=== PATIENT | female | born 1980 | race Caucasian/White ===

== ENCOUNTER 2021-06-24 20:17 | Emergency (ER) | payer OTHER, SELFPAY ==
[2021-06-24 20:20] VITALS: BP 122/59; PULSE 68; RESP 18; TEMP 36.6; O2SAT 100
--- NOTE | 2021-06-24 20:47 | ED.NAVMDI ---
HPI - Nausea/Vomiting/Diarrhea General Chief complaint: Abdominal Pain Stated complaint: Abd pain and vomiting for 3 days Time Seen by Provider: 06/24/21 20:31 Source: patient Mode of arrival: ambulatory Limitations: no limitations History of Present Illness HPI Narrative: Patient is a 41-year-old female complaining of nausea vomiting accompanied by epigastric discomfort, described as burning, mild, nonradiating x3 days. Patient describes her vomitus is nonbilious nonbloody. Patient denies any chest pain, shortness of breath, diarrhea, urinary symptoms, fever or chills. Related Data Allergies Allergy/AdvReac Type Severity Reaction Status Date / Time penicillin G Allergy Hives Verified 06/24/21 20:58 Review of Systems Review of Systems: All systems reviewed & are unremarkable except as noted in HPI and below Constitutional: Constitutional: Denies body ache(s), Denies chills, Denies excessive sweating, Denies fatigue, Denies fever(s), Denies headache(s), Denies lethargy, Denies malaise, Denies weakness and Denies weight loss Eyes: Eyes: Denies blurry vision, Denies change in vision and Denies loss of vision ENT: Denies dizziness, Denies ear discharge, Denies headache(s), Denies lip swelling, Denies epistaxis, Denies nasal congestion, Denies neck pain, Denies throat swelling and Denies tongue swelling Cardiovascular: Cardiovascular: Denies chest pain, Denies chest pain at rest, Denies chest pain with activity, Denies diaphoresis, Denies rapid heart rate, Denies edema, Denies irregular heart rhythm, Denies lightheadedness, Denies palpitations, Denies dyspnea and Denies dyspnea on exertion Respiratory: Respiratory: Denies chest congestion, Denies cough, Denies hemoptysis, Denies dyspnea and Denies dyspnea on exertion Gastrointestinal: Gastrointestinal: Denies abdominal pain, Denies melena, Denies hematochezia, Denies diarrhea and Denies hematemesis Musculoskeletal: Musculoskeletal: Denies abnormal gait, Denies deformity, Denies joint swelling, Denies limited range of motion, Denies neck pain and Denies numbness Neurologic: Denies Abnormal speech present, Denies abnormal gait, Denies confusion, Denies dizziness, Denies headache(s), Denies focal weakness, Denies loss of vision, Denies numbness, Denies Other visual disturbances, Denies Sensory deficit (Neuro) and Denies weakness Psychiatric: Psychiatric: Denies confusion, Denies depression, Denies auditory hallucinations, Denies homicidal ideation and Denies suicidal ideation Endocrine: Endocrine: Denies cold intolerance, Denies excessive sweating, Denies fatigue, Denies heat intolerance and Denies palpitations Hematologic/Lymphatic: Hematologic/Lymphatic: Denies easy bleeding and Denies easy bruising Allergic/Immunologic: Allergic/Immunologic: Denies lip swelling, Denies throat swelling and Denies tongue swelling PMFSH Comments Past medical history: Pacemaker Family history: None Social history: Vapes, occasional EtOH use, occasional marijuana use Exam Const: General: cooperative, healthy appearing, comfortable, no acute distress, well developed, alert and awake; No confusion Orientation/consciousness: oriented to person, oriented to place, oriented to time, patient oriented x3 and No confusion Limitations: no limitations HENMT: Head: normal to inspection, normocephalic and atraumatic Ears: hearing grossly normal bilaterally, TM normal on the right and TM normal on the left General nose exam: Normal external nose present, Normal nares present and No nasal discharge present Face and sinus: normal facial exam Mouth: Yes Normal oral and palatal mucosa present, Yes lip normal, Yes tongue normal and Yes oropharynx normal Throat: posterior oropharynx normal, tonsils normal and uvula midline Eyes: General: appearance normal, both eyes and all related structures Pupils: Equal, round and reactive pupils present EOM: EOMs intact bilaterally Neck: Neck: normal visual inspection, full ROM, no
[2021-06-24] MEDS: SODIUM CHLORIDE 0.9% IV 1,000 ML 999 ML IV CONT ×2 (20:55→22:29)
[2021-06-24] MEDS: PROMETHAZINE HCL 25 MG/ML AMPUL 12.5 MG IV PUSH (20:56)
[2021-06-24] MEDS: PANTOPRAZOLE SODIUM IV 40 MG VIAL IV PUSH (20:56)
[2021-06-24 21:11] LABS: Basophils Percent Auto 0.3 % (0.2-1.2); Eosinophils Percent Auto 0.1 % (0-4.4); Hematocrit 40.5 % (37.0-47.0); Hemoglobin 13.9 g/dL (12.0-15.0); Immature Granulocyte Absolute 0.02 K/mm3 (0.00-0.031); Immature Granulocyte Percent A 0.2 % (0-0.5); Lymphocytes Absolute Auto 1.32 K/mm3 (0.9-3.2); Mean Corpuscular HGB Conc 34.3 g/dl (32-36); Mean Corpuscular Hemoglobin 33.3 pg (26-34); Mean Corpuscular Volume 96.9 fl (80-100); Mean Platelet Volume 11.6 fl (7.4-10.4); Monocytes Absolute Auto 0.8 K/mm3 (0.1-0.6); Neutrophils Absolute Auto 7.3 K/mm3 (1.3-6.7); Neutrophils Percent Auto 77.4 % (45.5-73.1); Platelet Count Result 190 k/mm3 (150-375); Red Blood Count 4.18 M/mm3 (4.2-5.4); Red Cell Distribution Width 11.6 % (11.5-14.5); White Blood Count 9.4 K/mm3 (4.5-10.0)
[2021-06-24] MEDS: ONDANSETRON INJ 4 MG/2 ML VIAL IV PUSH (21:26)
[2021-06-24 21:29] LABS: Alanine Aminotransferase 17 U/L (4-35); Albumin Level 4.6 g/dL (3.5-5.1); Alkaline Phosphatase 56 U/L (38-126); Anion Gap 10 mmol/L (8-16); Aspartate Amino Transferase 22 U/L (14-36); Bilirubin,Total 0.6 mg/dL (0.2-1.3); Blood Urea Nitrogen 11 mg/dL (7-17); Calcium 9.3 mg/dL (8.4-10.2); Carbon Dioxide 28 mmol/L (22-30); Chloride 98 mmol/L (98-107); Estimated CRCL calculation 89 ml/min; Estimated Glomerular Filt Rate > 60; Glucose 116 mg/dL (65-110); Lipase 244 U/L (23-300); Potassium 3.1 mmol/L (3.4-5.0); Sodium 136 mmol/L (137-145)
[2021-06-24] MEDS: POTASSIUM CHLORIDE 20 MEQ PACKET (FOR LIQUID) PO (22:29)
[2021-06-24 22:33] VITALS: BP 118/72; PULSE 72; RESP 18; O2SAT 99
[2021-06-24 23:49] VITALS: BP 111/57; PULSE 100; RESP 17; O2SAT 98
== END 2021-06-24 23:38 | disposition home or self-care (01) ==
PROVIDERS: Emergency Provider Emergency Medicine; PCP Family Medicine
DX: K29.00 Acute gastritis without bleeding (principal); Z95.0 Presence of cardiac pacemaker
CPT/HCPCS: 36415; 80053; 83690; 85025; 96361; 96374; 96375; 99284; A9270; C9113; J2405; J2550; J7030

== ENCOUNTER 2021-12-02 08:57 | Emergency (ER) | payer OTHER, SELFPAY ==
--- NOTE | ~2021-12-02 | XR_ITS ---
EXAMINATION: XR foot LT min 3V DATE: 12/02/2021 09:30 INDICATION: Left foot pain and swelling. Injury. TECHNIQUE: 4 views of left foot were obtained. COMPARISON: None. FINDINGS: Bone alignment is normal. No fracture. There is mild osteoarthritis of first metatarsophala ngeal joint and some of the interphalangeal joints. There is an enthesophyte at plantar aspect of percy caneal tuberosity. IMPRESSION: 1. Mild polyarticular osteoarthritis. Reviewed, dictated and finalized at location D.
[2021-12-02 09:07] VITALS: BP 107/54; PULSE 61; RESP 18; TEMP 37.1; O2SAT 97
--- NOTE | 2021-12-02 09:21 | ED.GENADULT ---
HPI - General Adult General Chief complaint: Extremity Injury, Lower Stated complaint: left foot injury Time Seen by Provider: 12/02/21 09:01 Source: RN notes reviewed History of Present Illness HPI narrative: Patient presents emergency room from home for left foot pain. Patient states she was playing with her 3-year-old last night when her left fifth toe struck the wall and was bent backwards states has had pain since that time in the toe as well as in the foot in this region with bruising of the fifth toe she states she is been able to place weight on the foot. States she not taking thing for pain she denies any other trauma or injury Related Data Allergies Allergy/AdvReac Type Severity Reaction Status Date / Time latex Allergy Unknown Unverified 08/24/21 15:52 Penicillins Allergy Unknown Unverified 08/24/21 15:52 penicillin G Allergy Hives Verified 08/24/21 15:52 Review of Systems Review of Systems: Gen.: Denies fevers or chills Musculoskeletal: See HPI Neuro: Denies numbness, tingling, weakness Skin: Denies rash Endo: Denies DM PMFSH Past Medical History Medical History (Updated 12/02/21 @ 09:56 by Jed Mcintosh DO) Patient denies significant medical history Social History Social History (Updated 12/02/21 @ 09:22 by Jed Mcintosh DO) Smoking status: Never smoker Exam Narrative: APPEARANCE: No acute distress, nontoxic, resting in bed Eyes: EOMI HEENT: Normocephalic, atraumatic, RESPIRATORY: No respiratory distress MUSCULOSKELETAl: Tender to palpation over the left fifth toe with swelling and ecchymosis there is tenderness at the fifth MTP joint remainder the foot is nontender dorsalis pedis pulse 2+ neurovascular intact no tenderness of the left ankle NEURO: Awake and alert. Following commands, speech normal, no focal deficits SKIN:: Warm, dry. Normal Color no rash or lesions Course Course Emergency Course: Discussed with patient results of workup and diagnosis. Discussed need for follow-up with primary care, proper use of medication, and reasons to return to the emergency department. Patient understands and agrees to current treatment plan Vital Signs Vital signs: Vital Signs Temperature 98.8 F 12/02/21 09:07 Pulse Rate 61 12/02/21 09:07 Respiratory Rate 18 12/02/21 09:07 Blood Pressure 107/54 L 12/02/21 09:07 Pulse Oximetry 97 12/02/21 09:07 Oxygen Delivery Room Air 12/02/21 09:07 Temperature 98.8 F 12/02/21 09:07 Pulse Rate 61 12/02/21 09:07 Respiratory Rate 18 12/02/21 09:07 Blood Pressure 107/54 L 12/02/21 09:07 Pulse Oximetry 97 12/02/21 09:07 Oxygen Delivery Room Air 12/02/21 09:07 Medical Decision Making Vital Signs Vital Signs: Vital Signs Temperature 98.8 F 12/02/21 09:07 Pulse Rate 61 12/02/21 09:07 Respiratory Rate 18 12/02/21 09:07 Blood Pressure 107/54 L 12/02/21 09:07 Pulse Oximetry 97 12/02/21 09:07 Oxygen Delivery Room Air 12/02/21 09:07 Temperature 98.8 F 12/02/21 09:07 Pulse Rate 61 12/02/21 09:07 Respiratory Rate 18 12/02/21 09:07 Blood Pressure 107/54 L 12/02/21 09:07 Pulse Oximetry 97 12/02/21 09:07 Oxygen Delivery Room Air 12/02/21 09:07 Imaging Data Radiologist's impression: ITS Impressions Foot X-Ray 12/02/21 09:33 IMPRESSION: 1. Mild polyarticular osteoarthritis. Discharge Plan Discharge Clinical Impression: Contusion of fifth toe of left foot Patient Disposition: Home, Self-Care Condition: Stable Instructions: Antibiotic Form, Foot Contusion (ED) Follow-up/Referrals: Marcos,MD Archana [Non-Staff] - 2 Days Time of Disposition: 09:56
[2021-12-02] MEDS: IBUPROFEN 600 MG TABLET PO (10:20)
== END 2021-12-02 10:32 | disposition home or self-care (01) ==
PROVIDERS: Emergency Provider Emergency Medicine
DX: S90.122A Contusion of left lesser toe(s) without damage to nail, initial encounter (principal); M19.072 Primary osteoarthritis, left ankle and foot; W22.01XA Walked into wall, initial encounter
CPT/HCPCS: 73630; 99283; A9270

== ENCOUNTER 2025-03-06 11:24 | Emergency (ER) | payer OTHER, SELFPAY ==
--- NOTE | ~2025-03-06 | CT_ITS ---
EXAMINATION: CT abdomen pelvis w con DATE: 03/06/2025 14:44 INDICATION: Upper abdominal pain TECHNIQUE: Computed tomography (CT) of the abdomen and pelvis was performed with 100 mL Omnipaque-350 intravenous contrast. Automated exposure control and iterative reconstruction technique were employed. The dose-length product was 236.38 mGy-cm. COMPARISON: None FINDINGS: Lung bases are clear. Heart size is normal. No pericardial or pleural effusion. Dual-lead cardiac pacemaker with lead tip near the apex of the right ankle and thickening of the right atrial appendage on the stacker driver topogram. 1.9 cm ill- defined hypodense/hypoenhancing lesion in the ligamentum teres. Gallbladder, spleen, pancreas, bilateral adrenal glands and kidneys are normal. Prominent edematous wall thickening at the gastric antrum suggestive of gastritis or peptic ulcer disease. Bladder, anteverted uterus and bilateral adrenal glands are normal. No bowel obstruction. The appendix is not visualized. No pericecal inflammatory change to suggest acute appendicitis. Very small fat-containing left inguinal hernia. No free intraperitoneal gas or fluid. No pathologically enlarged abdominal or pelvic lymphadenopathy. Mild bilateral sacroiliac osteoarthritis. IMPRESSION: 1. Edematous wall thickening at the gastric antrum suggestive of either peptic ulcer disease or focal gastritis which could be infectious or inflammatory in etiology. 2. Very small fat-containing left inguinal hernia. Reviewed, dictated and finalized at location A. IMPRESSION: 1. Edematous wall thickening at the gastric antrum suggestive of either peptic ulcer disease or focal gastritis which could be infectious or inflammatory in e tiology. 2. Very small fat-containing left inguinal hernia.
--- OUTSIDE RECORDS SUMMARY | 2025-03-06 11:27 | XMS_ITS | Encounter Summary ---
Author Organization [facility] Facility Care Team Providers Care Enterprise Systems Administrator Name Role Phone Archana Rodríguez MD Primary Care Provider [phone] Encounter Details Date Type Department Care Team (Latest Contact Info) Description 07/05/2017 Orders Only [facility] CLINCONV ProviderLacey MD [address] [place] [address] Social History Tobacco Use Types Packs/Day Years Used Date Smoking Tobacco: Never Assessed Comments Unknown Sex and Gender Information Value Date Recorded Sex Assigned at Not on file Legal Sex Female 5:07 PM VIRTUALIZATION CONSULTANT Gender Identity Female 07/30/2019 2:46 PM VIRTUALIZATION CONSULTANT Sexual Orientation Straight 07/30/2019 2: 46 PM VIRTUALIZATION CONSULTANT documented as of this encounter Plan of Treatment Not on file documented as of this encounter Procedures Procedure Name Priority Date/Time Associated Diagnosis Comments CARDIOLOGY REPORT 07/05/2017 12: 00 AM VIRTUALIZATION CONSULTANT documented in this encounter Results * CARDIOLOGY REPORT (07/05/2017 12:00 AM VIRTUALIZATION CONSULTANT) Anatomical Region Laterality Modality Other Narrative 07/05/2017 12:00 AM VIRTUALIZATION CONSULTANT Ordered by an unspecified provider. us Historical Provider [facility] AN LINDO Final Result documented in this encounter Visit Diagnoses Not on filedocumented in this encounter Additional Health Concerns Infection Onset Date Last Indicated Resolved Time COVID: Suspected 06/23/2021 06/23/2021 07/07/2021 3:05 AM VIRTUALIZATION CONSULTANT COVID: Suspected 03/11/2024 03/11/2024 03/11/2024 5:50 PM CDT documented as of this encounter Care Teams Enterprise Systems Administrator Relationship Specialty Start Date End Date Archana Rodríguez MD PCP - General Family Medicine 09/13/18 documented as of this encounter
--- OUTSIDE RECORDS SUMMARY | 2025-03-06 11:27 | XMS_ITS | Encounter Summary ---
Author Organization [facility] Address [address] [place] [address] Care Team Providers Care Breaker Engineer Name Role Phone Ruby Negron MD Unavailable Archana Singh MD Primary Care Provider [phone]- [phone] Encounter Details Date Type Department Care Team (Late st Contact Info) Description 09/19/2023 Theralogix Message Enc [facility], [facility] [address] [place], [place] [id number] [facility], [facility] Provider Carelink Battery Check Social History Tobacco Use Types Packs/Day Years Used Date Smoking Tobacco: Former Cigarettes Smokeless Tobacco: Current Alcohol Use Standard Drinks/Week Comments Yes 0 (1 standard drink = 0.6 oz pur e alcohol) Comments Unknown Sex and Gender Information Value Date Recorded Sex Assigned at Female 08/29/2023 11:37 AM CDT Legal Sex Female 6:21 PM CDT Gender Identity Female 08/29/2023 11:37 AM CDT Sexual Orientation Straight 08/29/2023 11 :37 AM CDT documented as of this encounter Plan of Treatment Upcoming Encounters Date Type Department Care Team (Late st Contact Info) Description 04/12/2025 2:00 PM CDT Allied Health/Nurse Visit [facility], [facility] [address] [place], [place] [phone] Dickson Rubio MD [facility]. [facility] [address] [place], [place] [id number] 04/13/2025 2:20 PM CDT Allied Health/Nurse Visit [facility], [facility] [address] [place] [address] Ruby Negron MD Three [facility]. [facility] [address] [place] [address] 12/21/2025 10:00 AM CDT Office Visit [facility], [facility] [address] [place], [place] [address] Ruth Clark, CLARICE 3 [facility], [facility] [address] [place] [address] documented as of this encounter Visit Diagnoses Not on filedocumented in this encounter Care Teams Breaker Engineer Relationship Specialty Start Date End Date Archana Singh MD Three [facility]. [facility] [address] [place] [address] PCP - General FAMILY PRACTICE 03/14/21 Ruby Negron MD Three [facility]. [facility] [address] [place] [address] EP Freezer Person CLINICAL CARDIAC ELECTROPHYSIOLOGY 12/10/18 documented as of this encounter
--- OUTSIDE RECORDS SUMMARY | 2025-03-06 11:27 | XMS_ITS | Encounter Summary ---
Author Organization [facility] Facility Care Team Providers Care Insurance Territory Manager Name Role Phone Archana Rodríguez MD Primary Care Provider [phone] Encounter Details Date Type Department Care Team (Latest Contact Info) Description 06/21/2015 Orders Only [facility] CLINCONV ProvideraLcey MD [address] [place] [address] Social History Tobacco Use Types Packs/Day Years Used Date Smoking Tobacco: Never Assessed Comments Unknown Sex and Gender Information Value Date Recorded Sex Assigned at Not on file Legal Sex Female 5:07 PM SYSTEM DEVELOPMENT MANAGER Gender Identity Female 07/30/2019 2:46 PM SYSTEM DEVELOPMENT MANAGER Sexual Orientation Straight 07/30/2019 2: 46 PM SYSTEM DEVELOPMENT MANAGER documented as of this encounter Plan of Treatment Not on file documented as of this encounter Procedures Procedure Name Priority Date/Time Associated Diagnosis Comments SCAN - PATHOLOGY 07/07/2015 12:0 0 AM SYSTEM DEVELOPMENT MANAGER documented in this encounter Results * SCAN - PATHOLOGY (07/07/2015 12:00 AM SYSTEM DEVELOPMENT MANAGER) Narrative 07/07/2015 12:00 AM SYSTEM DEVELOPMENT MANAGER Ordered by an unspecified provider. us Historical Provider Final Res ult documented in this encounter Visit Diagnoses Not on filedocumented in this encounter Additional Health Concerns Infection Onset Date Last Indicated Resolved Time COVID: Suspected 06/23/2021 06/23/2021 07/07/2021 3:05 AM SYSTEM DEVELOPMENT MANAGER COVID: Suspected 03/11/2024 03/11/2024 03/11/2024 5:50 PM CDT documented as of this encounter Care Teams Insurance Territory Manager Relationship Specialty Start Date End Date Archana Rodríguez MD PCP - General Family Medicine 09/13/18 documented as of this encounter
--- OUTSIDE RECORDS SUMMARY | 2025-03-06 11:27 | XMS_ITS | Encounter Summary ---
Author Organization [facility] Facility Care Team Providers Care Hone Operator Name Role Phone Archana Rodríguez MD Primary Care Provider [phone] Encounter Details Date Type Department Care Team (Latest Contact Info) Description 01/18/2016 Orders Only [facility] CLINCONV ProviderLacey MD [address] [place] [address] Social History Tobacco Use Types Packs/Day Years Used Date Smoking Tobacco: Never Assessed Comments Unknown Sex and Gender Information Value Date Recorded Sex Assigned at Not on file Legal Sex Female 5:07 PM APPLIANCE INSTALLER Gender Identity Female 07/30/2019 2:46 PM APPLIANCE INSTALLER Sexual Orientation Straight 07/30/2019 2: 46 PM APPLIANCE INSTALLER documented as of this encounter Plan of Treatment Not on file documented as of this encounter Procedures Procedure Name Priority Date/Time Associated Diagnosis Comments SCAN - LABS 01/18/2016 12:00 AM CDT documented in this encounter Results * SCAN - LABS (01/18/2016 12:00 AM CDT) Narrative 01/18/2016 12:00 AM CDT Ordered by an unspecified provider. us Historical Provider Final Res ult documented in this encounter Visit Diagnoses Not on filedocumented in this encounter Additional Health Concerns Infection Onset Date Last Indicated Resolved Time COVID: Suspected 06/23/2021 06/23/2021 07/07/2021 3:05 AM APPLIANCE INSTALLER COVID: Suspected 03/11/2024 03/11/2024 03/11/2024 5:50 PM CDT documented as of this encounter Care Teams Hone Operator Relationship Specialty Start Date End Date Archana Rodríguez MD PCP - General Family Medicine 09/13/18 documented as of this encounter
--- OUTSIDE RECORDS SUMMARY | 2025-03-06 11:27 | XMS_ITS | Encounter Summary ---
Author Organization [facility] Address [address] [place] [address] Care Team Providers Care Freelance Designer Name Role Phone Ruby Negron MD Unavailable Archana Singh MD Primary Care Provider [phone]- [phone] Encounter Details Date Type Department Care Team (Late st Contact Info) Description 07/31/2023 eSolar Message Enc [facility], [facility] [address] [place], [place] [phone] [facility], [facility] Provider Carelink Transmission received Social History Tobacco Use Types Packs/Day Years [...] 04/12/2025 2:00 PM CDT Allied Health/Nurse Visit [facility] THREE [facility], [facility] [address] [place], [place] [phone] Dickson Rubio MD [facility]. [facility] [address] [place], [place] [phone] 04/13/2025 2:20 PM CDT Allied Health/Nurse Visit [facility] THREE [facility], [facility] [address] [place] [address] Ruby Negron MD Three [facility]. [facility] [address] [place] [address] 12/21/2025 10:00 AM CDT Office Visit [facility] THREE [facility], [facility] [address] [place], [place] [address] Ruth Clark, CLARICE 3 [facility], [facility] [address] [place] [address] documented as of this encounter Visit Diagnoses Not on filedocumented in this encounter Care Teams Freelance Designer Relationship Specialty Start Date End Date Archana Singh MD Three [facility]. [facility] [address] [place] [address] PCP - General FAMILY PRACTICE 03/14/21 Ruby Negron MD Three [facility]. [facility] [address] [place], [place] [address] EP Lace Inspector CLINICAL CARDIAC ELECTROPHYSIOLOGY 12/10/18 documented as of this encounter
--- OUTSIDE RECORDS SUMMARY | 2025-03-06 11:27 | XMS_ITS | Encounter Summary ---
Author Organization [facility] Address [address] [place] [address] Care Team Providers Care Staining Machine Operator Name Role Phone Eden Lal MD Primary Care Provider +1 [phone] Ruby Negron MD Unavailable Archana Singh MD Primary Care Provider +1- [phone] Encounter Details Date Type Department Care Team (Late Contact Info) Description 12/31/2018 Abstract [facility], [facility] [address] [place] [address] Shan Smith MA Social History Tobacco Use Types Packs/Day Years Used Date Smoking Tobacco: Every Day Cigarettes Smokeless Tobacco: Never Alcohol Use Standard Drinks/Week Comments Yes 0 [...] Encounters Date Type Department Care Team (Late Contact Info) Description 04/12/2025 2:00 PM CDT Allied Health/Nurse Visit [facility], [facility] [address] [place], [place] [phone] Dickson Rubio MD [facility]. [facility] [address] [place], [place] [address] 04/13/2025 2:20 PM CDT Allied Health/Nurse Visit [facility] THREE [facility], [place] [address] [place] [address] Ruby Negron MD Three [facility]. [facility] [address], [place] [address] 12/21/2025 10:00 AM CDT Office Visit [facility] THREE [facility], [facility] [address] [place], [place] [phone] Ruth Clark APRN 3 [facility], [facility] [address] [place], [place] [address] documented as of this encounter Procedures Procedure Name Priority Date/Time Associated Diagnosis Comments CBC (OUTSIDE LAB) Routine 01/01/2018 COMPREHENSIVE METABOLIC PANEL Routine 07/19/2017 THYROXINE, FREE (FT4) Routine 07/19/2017 THYROID STIM HORMONE TSH Routine 07/19/2017 HEMOGLOBIN, GLYCOSYLATED Routine 05/29/2017 documented in this encounter Results * CBC (OUTSIDE LAB) (01/01/2018) WBC 12.9 HGB 12.6 HCT 36.2 PLT 155 01/01/2018 us Doc [facility] Abstract LAB-OUTSIDE/ABSTRACTED Final Result * THYROID STIM HORMONE, TSH (07/19/2017) TSH 0.36 07/19/2017 us Doc [facility] Abstract LABORATORY Final Result * THYROXINE, FREE (FT4) (07/19/2017) FREE T4 0.94 07/19/2017 us Doc [facility] Abstract LABORATORY Final Result * (ABNORMAL) COMPREHENSIVE METABOLIC PANEL (07/19/2017) SODIUM S/P/B 135 POTASSIUM S/P/B 3.6 CO2 25 CHLORIDE S/P/B 96 GLUCOSE 77 mg/dL CALCIUM S/P/B 9.6 BUN 10 CREATININE S/P/B 0.4(A) 0.5 - 1.0 ALKALINE PHOSPHATASE S/P/B 48 ALT 14 AST 16 BILIRUBIN TOTAL S/P/B <0.2 ALBUMIN S/P/B 4.3 3.5 - 5.0 TOTAL PROTEIN S/P/B 6.9 GLOBULIN 2.6 07/19/2017 us Doc [facility] Abstract LABORATORY Final Result * HEMOGLOBIN, GLYCOSYLATED (05/29/2017) HGB A1C 4.7 05/29/2017 us Doc [facility] Abstract LABORATORY Final Result documented in this encounter Visit Diagnoses Not on filedocumented in this encounter Care Teams Staining Machine Operator Relationship Specialty Start Date End Date Eden Lal MD PCP - General FAMILY PRACTICE 09/30/18 03/13/21 [facility] [address] [place], [place] [phone] PCP - General FAMILY PRACTICE 03/14/21 [facility] [address] [place], [place] [phone] EP Project Control Analyst CLINICAL CARDIAC ELECTROPHYSIOLOGY 12/10/18 documented as of this encounter
--- OUTSIDE RECORDS SUMMARY | 2025-03-06 11:27 | XMS_ITS | Encounter Summary ---
Author Organization [facility] Facility Care Team Providers Care Division Chair Name Role Phone Archana Rodríguez MD Primary Care Provider [phone] [phone] Encounter Details Date Type Department Care Team (Latest Contact Info) Description 12/06/2015 Orders Only [facility] CLINCONV ProviderLacey MD [address] [place] [address] Social History Tobacco Use Types Packs/Day Years Used Date Smoking Tobacco: Never Assessed Comments Unknown Sex and Gender Information Value Date Recorded Sex Assigned at Not on file Legal Sex Female 5:07 PM ASSISTANT PROFESSOR Gender Identity Female 07/30/2019 2:46 PM ASSISTANT PROFESSOR Sexual Orientation Straight 07/30/2019 2: 46 PM ASSISTANT PROFESSOR documented as of this encounter Plan of Treatment Not on file documented as of this encounter Procedures Procedure Name Priority Date/Time Associated Diagnosis Comments CARDIOLOGY REPORT 12/09/2015 12: 00 AM CDT CARDIOLOGY REPORT 12/06/2015 12: 00 AM CDT documented in this encounter Results * CARDIOLOGY REPORT (12/09/2015 12:00 AM CDT) Anatomical Region Laterality Modality Other Narrative 12/09/2015 12:00 AM CDT Ordered by an unspecified provider. Historical Provider [facility] C[facility]AC [facility] AN LINDO Final Result * CARDIOLOGY REPORT (12/06/2015 12:00 AM CDT) Anatomical Region Laterality Modality Other Narrative 12/06/2015 12:00 AM CDT Ordered by an unspecified provider. Historical Provider [facility] C[facility]IAC [facility] PROCE FRANKES Final Result documented in this encounter Visit Diagnoses Not on filedocumented in this encounter Additional Health Concerns Infection Onset Date Last Indicated Resolved Time COVID: Suspected 06/23/2021 06/23/2021 07/07/2021 3:05 AM ASSISTANT PROFESSOR COVID: Suspected 03/11/2024 03/11/2024 03/11/2024 5:50 PM CDT documented as of this encounter Care Teams Division Chair Relationship Specialty Start Date End Date Archana Rodríguez MD PCP - General Family Medicine 09/13/18 documented as of this encounter
--- OUTSIDE RECORDS SUMMARY | 2025-03-06 11:27 | XMS_ITS | Encounter Summary ---
Author Organization [facility] Facility Care Team Providers Care Clinical Program Director Name Role Phone Archana Rodríguez MD Primary Care Provider +1 -[phone] Encounter Details Date Type Department Care Team (Latest Contact Info) Description 12/06/2017 Orders Only [facility] CLINCONV ProviderLacey MD [address] [place] [address] Social History Tobacco Use Types Packs/Day Years Used Date Smoking Tobacco: Never Assessed Comments Unknown Sex and Gender Information Value Date Recorded Sex Assigned at Not on file Legal Sex Female 5:07 PM WATER ATTENDANT Gender Identity Female 07/30/2019 2:46 PM WATER ATTENDANT Sexual Orientation Straight 07/30/2019 2: 46 PM WATER ATTENDANT documented as of this encounter Plan of Treatment Not on file documented as of this encounter Procedures Procedure Name Priority Date/Time Associated Diagnosis Comments CARDIOLOGY REPORT 12/06/2017 12: 00 AM CDT documented in this encounter Results * CARDIOLOGY REPORT (12/06/2017 12:00 AM CDT) Anatomical Region Laterality Modality Other Narrative 12/06/2017 12:00 AM CDT Ordered by an unspecified provider. us Historical Provider CV CARDIAC SERVICES AN LINDO Final Result documented in this encounter Visit Diagnoses Not on filedocumented in this encounter Additional Health Concerns Infection Onset Date Last Indicated Resolved Time COVID: Suspected 06/23/2021 06/23/2021 07/07/2021 3:05 AM WATER ATTENDANT COVID: Suspected 03/11/2024 03/11/2024 03/11/2024 5:50 PM CDT documented as of this encounter Care Teams Clinical Program Director Relationship Specialty Start Date End Date Archana Rodríguez MD PCP - General Family Medicine 09/13/18 documented as of this encounter
--- OUTSIDE RECORDS SUMMARY | 2025-03-06 11:27 | XMS_ITS | Encounter Summary ---
Author Organization [facility] Facility Care Team Providers Care Natural Resources Specialist Name Role Phone Archana Rodríguez MD Primary Care Provider +1 [phone] Encounter Details Date Type Department Care Team (Latest Contact Info) Description 04/13/2016 Orders Only [facility] CLINCONV ProviderLacey MD [address] [place] [address] Social History Tobacco Use Types Packs/Day Years Used Date Smoking Tobacco: Never Assessed Comments Unknown Sex and Gender Information Value Date Recorded Sex Assigned at Not on file Legal Sex Female 5:07 PM FREIGHT SEPARATOR Gender Identity Female 07/30/2019 2:46 PM FREIGHT SEPARATOR Sexual Orientation Straight 07/30/2019 2: 46 PM FREIGHT SEPARATOR documented as of this encounter Plan of Treatment Not on file documented as of this encounter Procedures Procedure Name Priority Date/Time Associated Diagnosis Comments COLONOSCOPY - SCAN 04/13/2016 12 :00 AM CDT documented in this encounter Results * COLONOSCOPY - SCAN (04/13/2016 12:00 AM CDT) Narrative 04/13/2016 12:00 AM CDT Ordered by an unspecified provider. us Historical Provider Final Res ult documented in this encounter Visit Diagnoses Not on filedocumented in this encounter Additional Health Concerns Infection Onset Date Last Indicated Resolved Time COVID: Suspected 06/23/2021 06/23/2021 07/07/2021 3:05 AM FREIGHT SEPARATOR COVID: Suspected 03/11/2024 03/11/2024 03/11/2024 5:50 PM CDT documented as of this encounter Care Teams Natural Resources Specialist Relationship Specialty Start Date End Date Archana Rodríguez MD PCP - General Family Medicine 09/13/18 documented as of this encounter
--- OUTSIDE RECORDS SUMMARY | 2025-03-06 11:27 | XMS_ITS | Encounter Summary ---
Author Organization [facility] Address [address] [place] [address] Care Team Providers Care Interchange Agent Name Role Phone Ruby Negron MD Unavailable Archana Singh MD Primary Care Provider +1- [phone] Encounter Details Date Type Department Care Team (Late st Contact Info) Description 10/22/2023 [employer] Message Enc [facility], [facility] [address] [place], [place] [id number] [facility], [facility] Provider Carelink Social History Tobacco Use Types Packs/Day Years [...] 04/12/2025 2:00 PM CDT Allied Health/Nurse Visit [facility] THREE [facility], [facility] [address] [place], [place] [id number] Dickson Rubio MD [facility]. [facility] [address] [place], [place] [id number] 04/13/2025 2:20 PM CDT Allied Health/Nurse Visit [facility] THREE [facility], [facility] [address] [place] [address] Ruby Negron MD Three [facility]. [facility] [address] [place] [address] 12/21/2025 10:00 AM CDT Office Visit [facility] THREE [facility], [facility] [address] [place] [address] Ruth Clark APRN 3 [facility], [facility] [address] [place] [address] documented as of this encounter Visit Diagnoses Not on filedocumented in this encounter Care Teams Interchange Agent Relationship Specialty Start Date End Date Archana Singh MD Three [facility]. [facility] [address] [place] [address] PCP - General FAMILY PRACTICE 03/14/21 Ruby Negron MD Three [facility]. [facility] [address] [place] [address] EP Transmitter Chief CLINICAL CARDIAC ELECTROPHYSIOLOGY 12/10/18 documented as of this encounter
--- OUTSIDE RECORDS SUMMARY | 2025-03-06 11:27 | XMS_ITS | Encounter Summary ---
Author Organization [facility] Address [address] [place] [address] Care Team Providers Care Spraying Machine Operator Name Role Phone Ruby Negron MD Unavailable Archana Singh MD Primary Care Provider +1- [phone] Encounter Details Date Type Department Care Team (Late st Contact Info) Description 11/08/2023 [employer] Medicalt Message Enc [facility]andana [facility], [facility] [address] [place], [place] [id number] Olga Skelton PA-C Blood work question Social History Tobacco Use Types Packs/Day Years [...] 04/12/2025 2:00 PM CDT Allied Health/Nurse Visit [facility], [facility] [address] [place], [place] [phone] Dickson Rubio MD [facility]. [facility] [address] [place], [place] [address] 04/13/2025 2:20 PM CDT Allied Health/Nurse Visit [facility] THREE [facility], [facility] [address] [place] [address] Ruby Negron MD Three [facility]. [facility] [address] [place] [address] 12/21/2025 10:00 AM CDT Office Visit [facility] THREE [facility], [facility] [address] [place], [place] [address] Ruth Clark, CLARICE [address] [facility], [facility] [address] [place], [place] [address] documented as of this encounter Visit Diagnoses Not on filedocumented in this encounter Care Teams Spraying Machine Operator Relationship Specialty Start Date End Date Archana Singh MD Three [facility]. [facility] [address] [place] [address] PCP - General FAMILY PRACTICE 03/14/21 Ruby Negron MD Three [facility]. [facility] [address] [place] [address] EP Design Inserter CLINICAL CARDIAC ELECTROPHYSIOLOGY 12/10/18 documented as of this encounter
--- OUTSIDE RECORDS SUMMARY | 2025-03-06 11:27 | XMS_ITS | Encounter Summary ---
Author Organization [facility] Facility Care Team Providers Care Seasonal Sales Associate Name Role Phone Archana Rodríguez MD Primary Care Provider +1 [phone] Encounter Details Date Type Department Care Team (Latest Contact Info) Description 07/16/2017 Orders Only [facility] CLINCONV ProviderLacey MD [address] [place] [address] Social History Tobacco Use Types Packs/Day Years Used Date Smoking Tobacco: Never Assessed Comments Unknown Sex and Gender Information Value Date Recorded Sex Assigned at Not on file Legal Sex Female 5:07 PM POWER ORIGINATOR Gender Identity Female 07/30/2019 2:46 PM POWER ORIGINATOR Sexual Orientation Straight 07/30/2019 2: 46 PM POWER ORIGINATOR documented as of this encounter Plan of Treatment Not on file documented as of this encounter Procedures Procedure Name Priority Date/Time Associated Diagnosis Comments SCAN - LABS 07/16/2017 12:00 AM POWER ORIGINATOR documented in this encounter Results * SCAN - LABS (07/16/2017 12:00 AM POWER ORIGINATOR) Narrative 07/16/2017 12:00 AM POWER ORIGINATOR Ordered by an unspecified provider. us Historical Provider Final Res ult documented in this encounter Visit Diagnoses Not on filedocumented in this encounter Additional Health Concerns Infection Onset Date Last Indicated Resolved Time COVID: Suspected 06/23/2021 06/23/2021 07/07/2021 3:05 AM POWER ORIGINATOR COVID: Suspected 03/11/2024 03/11/2024 03/11/2024 5:50 PM CDT documented as of this encounter Care Teams Seasonal Sales Associate Relationship Specialty Start Date End Date Archana Rodríguez MD PCP - General Family Medicine 09/13/18 documented as of this encounter
--- OUTSIDE RECORDS SUMMARY | 2025-03-06 11:27 | XMS_ITS | Encounter Summary ---
Author Organization [facility] Address [address] [place] [address] Care Team Providers Care Fusing Machine Feeder Name Role Phone Ruby Negron MD Unavailable Archana Singh MD Primary Care Provider +1- [phone] Encounter Details Date Type Department Care Team (Late st Contact Info) Description 10/04/2023 Porch Message Enc [facility], [facility] [address] [place], [place] [id number] [facility], [facility] Provider Carelink Transmission Received Social History Tobacco Use Types Packs/Day Years [...] 04/12/2025 2:00 PM CDT Allied Health/Nurse Visit [facility] THREE [facility], [facility] [address] [place], [place] [phone] Dickson Rubio MD [facility]. [facility] [address] [place], [place] [phone] 04/13/2025 2:20 PM CDT Allied Health/Nurse Visit [facility] THREE [facility], [facility] [address] [place] [address] Ruby Negron MD Three [facility]. [facility] [address] [place] [address] 12/21/2025 10:00 AM CDT Office Visit [place] [facility] THREE [facility], [facility] [address] [place], [place] [address] Ruth Clark, CLARICE 3 [facility], [facility] [address] [place] [address] documented as of this encounter Visit Diagnoses Not on filedocumented in this encounter Care Teams Fusing Machine Feeder Relationship Specialty Start Date End Date Archana Singh MD Three [facility]. [facility] [address] [place] [address] PCP - General FAMILY PRACTICE 03/14/21 Ruby Negron MD Three [facility]. [facility] [address] [place], [place] [address] EP Datastage Architect CLINICAL CARDIAC ELECTROPHYSIOLOGY 12/10/18 documented as of this encounter
--- OUTSIDE RECORDS SUMMARY | 2025-03-06 11:27 | XMS_ITS | Encounter Summary ---
Author Organization [facility] Facility Care Team Providers Care Mailing Clerk Name Role Phone Archana Rodríguez MD Primary Care Provider +1 -[phone] Encounter Details Date Type Department Care Team (Latest Contact Info) Description 01/01/2017 Orders Only [facility] CLINCONV ProviderLacey MD [address] [place] [address] Social History Tobacco Use Types Packs/Day Years Used Date Smoking Tobacco: Never Assessed Comments Unknown Sex and Gender Information Value Date Recorded Sex Assigned at Not on file Legal Sex Female 5:07 PM DIRECTOR OF TEENAGE ACTIVITIES Gender Identity Female 07/30/2019 2:46 PM DIRECTOR OF TEENAGE ACTIVITIES Sexual Orientation Straight 07/30/2019 2: 46 PM DIRECTOR OF TEENAGE ACTIVITIES documented as of this encounter Plan of Treatment Not on file documented as of this encounter Procedures Procedure Name Priority Date/Time Associated Diagnosis Comments CARDIOLOGY REPORT 01/01/2017 12: 00 AM CDT documented in this encounter Results * CARDIOLOGY REPORT (01/01/2017 12:00 AM CDT) Anatomical Region Laterality Modality Other Narrative 01/01/2017 12:00 AM CDT Ordered by an unspecified provider. us Historical Provider CV CARDIAC SERVICES AN LINDO Final Result documented in this encounter Visit Diagnoses Not on filedocumented in this encounter Additional Health Concerns Infection Onset Date Last Indicated Resolved Time COVID: Suspected 06/23/2021 06/23/2021 07/07/2021 3:05 AM DIRECTOR OF TEENAGE ACTIVITIES COVID: Suspected 03/11/2024 03/11/2024 03/11/2024 5:50 PM CDT documented as of this encounter Care Teams Mailing Clerk Relationship Specialty Start Date End Date Archana Rodríguez MD PCP - General Family Medicine 09/13/18 documented as of this encounter
--- OUTSIDE RECORDS SUMMARY | 2025-03-06 11:27 | XMS_ITS | Encounter Summary ---
Author Organization [facility] Facility Care Team Providers Care Technicians And Trades Workers Name Role Phone Archana Rodríguez MD Primary Care Provider +1 -[phone] Encounter Details Date Type Department Care Team (Latest Contact Info) Description 06/05/2016 Orders Only [facility] CLINCONV ProviderLacey MD [address] [place] [address] Social History Tobacco Use Types Packs/Day Years Used Date Smoking Tobacco: Never Assessed Comments Unknown Sex and Gender Information Value Date Recorded Sex Assigned at Not on file Legal Sex Female 5:07 PM LEAD CUSTOMER SERVICE REPRESENTATIVE Gender Identity Female 07/30/2019 2:46 PM LEAD CUSTOMER SERVICE REPRESENTATIVE Sexual Orientation Straight 07/30/2019 2: 46 PM LEAD CUSTOMER SERVICE REPRESENTATIVE documented as of this encounter Plan of Treatment Not on file documented as of this encounter Procedures Procedure Name Priority Date/Time Associated Diagnosis Comments CARDIOLOGY REPORT 06/07/2016 12: 00 AM LEAD CUSTOMER SERVICE REPRESENTATIVE documented in this encounter Results * CARDIOLOGY REPORT (06/07/2016 12:00 AM LEAD CUSTOMER SERVICE REPRESENTATIVE) Anatomical Region Laterality Modality Other Narrative 06/07/2016 12:00 AM LEAD CUSTOMER SERVICE REPRESENTATIVE Ordered by an unspecified provider. us Historical Provider CV CARDIAC SERVICES AN LINDO Final Result documented in this encounter Visit Diagnoses Not on filedocumented in this encounter Additional Health Concerns Infection Onset Date Last Indicated Resolved Time COVID: Suspected 06/23/2021 06/23/2021 07/07/2021 3:05 AM LEAD CUSTOMER SERVICE REPRESENTATIVE COVID: Suspected 03/11/2024 03/11/2024 03/11/2024 5:50 PM CDT documented as of this encounter Care Teams Technicians And Trades Workers Relationship Specialty Start Date End Date Archana Rodríguez MD PCP - General Family Medicine 09/13/18 documented as of this encounter
--- OUTSIDE RECORDS SUMMARY | 2025-03-06 11:27 | XMS_ITS | Clinical Summary ---
Author Organization [facility] Address [facility] [place] [address] Care Team Providers Care Care Partner Name Role Phone Ruby Negron MD Unavailable Archana Singh MD Primary Care Provider +1- [phone] Allergies Active Allergy Reactions Criticality Noted Date Comments Latex Swelling Medium 08/02/2017 swelling Penicillin V Unknown 12/30/2018 Medications ALPRAZolam (XANAX) 0.25 MG tablet Take 1 tablet (0.25 mg total) by mouth. 02/14/2022 Active loratadine (CLARITIN) 10 MG tablet Take 1 tablet (10 mg total) by mouth as needed for Allergies. 07/24/2022 Active SUMAtriptan (IMITREX) 50 MG tablet Take 1 tablet (50 mg total) by mouth 2 (two) times daily as needed for Migraine. Active phentermine (ADIPEX-P) 37.5 MG tablet Take 1 tablet (37.5 mg total) by mouth every morning before breakfast. Active Active Problems Problem Noted Date Diagnosed Date Mixed hyperlipidemia 07/07/2022 Overview (03/20/2023): Last Assessment & Plan: Chronic Follow low cholesterol diet Goal: TC<200, LDL<100 , TG<150 AV block, 2nd degree 07/31/2019 Overview (03/14/2021): Intermittent high-degree pacemaker placed with resolution of symptoms Last Assessment & Plan: Intermittent with syncope. Pacemaker in 2012. Rare pacing. No indication for OFFICE EMPLOYEE AV block 12/06/2015 Pacemaker 12/06/2015 Overview (02/24/2021): Last Assessment & Plan: Check today shows normal function. Underlying rhythm sinus. 60% a paced 70% V paced excellent lead function. Battery 3 years. Bradycardia 11/07/2015 Bipolar 1 disorder ([facility]) High degree atrioventricular block Syncope Encounters Date Type Department Care Team Description 01/12/2025 Travel 01/11/2025 2:00 PM CDT [facility] [address] [address] Ruby Negron MD Remote Device Check 12/08/2024 8:30 AM CDT [facility] THREE [facility], [address] [address] Ruby Negron MD Complete Heart Block (Medt Pacer) 12/08/2024 Travel from Last 3 Months Family History Medical History Relation Comments No Known Problems Father Alcohol Abuse Mother COPD Mother Diabetes Mother Relation Status Comments Brother Alive Father Alive Maternal Grandfather Maternal Grandmother Mother Alive Paternal Grandfather (Age 65) Paternal Grandmother Alive Sister Alive Social History Tobacco Use Types Packs/Day Years [...] Orientation Straight 08/29/2023 11 :37 AM CDT Last Filed Vital Signs Vital Sign Reading Time Taken Comments Blood Pressure 118/70 12/08/2024 8:38 AM CDT Pulse 84 12/08/2024 8:38 AM CDT Temperature 36.6 C (97.8 F) 11/16/2023 12:35 PM CDT Respiratory Rate 18 11/16/2023 2:30 PM CDT Oxygen Saturation 98% 12/08/2024 8:38 AM CDT Inhaled Oxygen Concentration - - Weight 62.6 kg (138 lb) 12/08/2024 8:38 AM CDT Height 160 cm (5' 3) 12/08/2024 8:38 AM CDT Body Mass Index 24.45 12/08/2024 8:38 AM CDT Plan of Treatment Upcoming Encounters Date Type Department Care Team (Late st Contact Info) Description 04/12/2025 2:00 PM CDT Allied Health/Nurse Visit [place] [facility] THREE [facility], [facility] [address] [place], [place] [address] Dickson Rubio MD Three [facility]. [facility] [address] [place] [address] 04/13/2025 2:20 PM CDT Allied Health/Nurse Visit [place] [facility] THREE [facility], [facility] [address] [place], [place] [address] Ruby Negron MD Three [facility]. [facility] [address] [place], [place] [address] 12/21/2025 10:00 AM CDT Office Visit [place] [facility] THREE [facility], [facility] [address] [place], [place] [address] Ruth Clark, CLARICE 3 [facility], [facility] [address] [place], [place] [address] Health Maintenance Due Date Last Done Comments Annual Physical 1985 Hepatitis C 01/04/2000 Hepatitis B Vaccines (1 of 3 - 19+ 3-dose series) 2001 HPV Vaccines (1 - 3-dose SCD M series) 2009 Cervical Cancer Screening Pa mary with HPV Testing (Age 30 to 64) Every 5 Years 01/04/2012 COVID-19 Vaccine (2023-2 5 season) 2025 Cervical Cancer Screening Pa p Smear (Age 30 to 64) Every 3 Years 06/21/2026 06/21/2023 Cervical Cancer Screening wi th HPV 06/21/2026 Mammogram Screening 10/06/2026 10/06/2024, 02/15/2023, 07/27/2021 DTaP, Tdap and Td Vaccines ( 2 - Tdap) 2028 01/02/2018 Meningococcal B Vaccine Aged Out No l onger eligible based on patient's age to complete this topic Meningococcal Vaccine Aged Out No chandana leah eligible based on patient's age to complete this topic Pneumococcal Vaccine: Pediatrics (0 to 5 Years) and At-Risk Patients (6 to 49 Years) Aged Out No longer eligible b ased on patient's age to complete this topic RSV Immunizations Under 20 Months Aged Out No longer eligible b ased on patient's age to complete this topic Medical Devices Implanted Type Area Airplane Patroller Device Identifier Shelf Expiration Date Model / Serial / Lot Ra Lead- 3 Implanted: (Quantity not on file) Lead Implant [employer] CARDIAC RHYTHM AND HEART FAILURE - DIV M [id number] / [id number] / Rv Lead- 3 Implanted: (Quantity not on file) Lead Implant [employer] CARDIAC RHYTHM AND HEART FAILURE - DIV M 4092-52 / [id number] / Mdt Pacemaker-5/3 06/2023 Implanted:Qty : 1 on 11/16/2023 by Ruby Negron MD Pacemaker [employer] [id number] 03/01/2025 [id number] / [id number] / Explanted Type Area Airplane Patroller Device Identifier Shelf Expiration Date Model / Serial / Lot Pacemaker-Medt- 02/04/2013 Implanted:02/04 by Drake Delgadillo MD (Quantity not on file) Explanted:Qty: 1 on 11/16/2023 by Ruby Negron MD Pacemaker [employer] / [id number] / Insurance [facility] Care Teams Care Partner Relationship Specialty Start Date End Date Archana Singh MD [facility]. [facility] [address] [place], [place] [address] PCP - General FAMILY PRACTICE 03/14/21 Ruby Negron MD Three [facility]. [facility] [address] [place], [place] [address] EP Preliminary School Psychologist CLINICAL CARDIAC ELECTROPHYSIOLOGY 12/10/18
--- OUTSIDE RECORDS SUMMARY | 2025-03-06 11:27 | XMS_ITS | Encounter Summary ---
Author Organization [facility] Address [address] [place] [address] Phone Care Team Providers Care Manager Study Name Role Phone Archana Rodríguez MD Primary Care Provider +1 -[phone] Encounter Details Date Type Department Care Team (Late st Contact Info) Description 07/12/2017 Orders Only [facility] ProviderLacey MD [facility] [place] [address] Social History Tobacco Use Types Packs/Day Years Used Date Smoking Tobacco: Never Assessed Comments Unknown Sex and Gender Information Value Date Recorded Sex Assigned at Not on file Legal Sex Female 5:07 PM INVENTORY AND PRICING ASSOCIATE Gender Identity Female 07/30/2019 2:46 PM INVENTORY AND PRICING ASSOCIATE Sexual Orientation Straight 07/30/2019 2: 46 PM INVENTORY AND PRICING ASSOCIATE documented as of this encounter Plan of Treatment Not on file documented as of this encounter Procedures Procedure Name Priority Date/Time Associated Diagnosis Comments CYTOLOGY 07/12/2017 12:00 AM INVENTORY AND PRICING ASSOCIATE documented in this encounter Results * CYTOLOGY (07/12/2017 12:00 AM INVENTORY AND PRICING ASSOCIATE) Narrative 07/12/2017 12:00 AM INVENTORY AND PRICING ASSOCIATE Ordered by an unspecified provider. Historical Provider LAB CYTOLOGY ORDERABLES F inal Result documented in this encounter Visit Diagnoses Not on filedocumented in this encounter Additional Health Concerns Infection Onset Date Last Indicated Resolved Time COVID: Suspected 06/23/2021 06/23/2021 07/07/2021 3:05 AM INVENTORY AND PRICING ASSOCIATE COVID: Suspected 03/11/2024 03/11/2024 03/11/2024 5:50 PM CDT documented as of this encounter Care Teams Manager Study Relationship Specialty Start Date End Date Archana Rodríguez MD PCP - General Family Medicine 09/13/18 documented as of this encounter
--- OUTSIDE RECORDS SUMMARY | 2025-03-06 11:27 | XMS_ITS | Encounter Summary ---
Author Organization [facility] Facility Care Team Providers Care Escort Blind Name Role Phone Archana Rodríguez MD Primary Care Provider [phone] Encounter Details Date Type Department Care Team (Latest Contact Info) Description 02/04/2013 Orders Only [facility] CLINCON[facility] ProviderLacey MD [address] [place] [id number] Social History Tobacco Use Types Packs/Day Years Used Date Smoking Tobacco: Never Assessed Comments Unknown Sex and Gender Information Value Date Recorded Sex Assigned at Not on file Legal Sex Female 5:07 PM FUNDING COORDINATOR Gender Identity Female 07/30/2019 2:46 PM FUNDING COORDINATOR Sexual Orientation Straight 07/30/2019 2: 46 PM FUNDING COORDINATOR documented as of this encounter Plan of Treatment Not on file documented as of this encounter Procedures Procedure Name Priority Date/Time Associated Diagnosis Comments CARDIOLOGY REPORT 02/04/2013 12: 00 AM CDT documented in this encounter Results * CARDIOLOGY REPORT (02/04/2013 12:00 AM CDT) Anatomical Region Laterality Modality Other Narrative 02/04/2013 12:00 AM CDT Ordered by an unspecified provider. us Historical Provider [facility] Final Result documented in this encounter Visit Diagnoses Not on filedocumented in this encounter Additional Health Concerns Infection Onset Date Last Indicated Resolved Time COVID: Suspected 06/23/2021 06/23/2021 07/07/2021 3:05 AM FUNDING COORDINATOR COVID: Suspected 03/11/2024 03/11/2024 03/11/2024 5:50 PM CDT documented as of this encounter Care Teams Escort Blind Relationship Specialty Start Date End Date Archana Rodríguez MD PCP - General Family Medicine 09/13/18 documented as of this encounter
--- OUTSIDE RECORDS SUMMARY | 2025-03-06 11:27 | XMS_ITS | Encounter Summary ---
Author Organization [facility] Facility Care Team Providers Care Brush Holder Inspector Name Role Phone Archana Rodríguez MD Primary Care Provider [phone] Encounter Details Date Type Department Care Team (Latest Contact Info) Description 07/26/2017 Orders Only [facility] CLINCONV ProviderLacey MD [address] [place] [id number] Social History Tobacco Use Types Packs/Day Years Used Date Smoking Tobacco: Never Assessed Comments Unknown Sex and Gender Information Value Date Recorded Sex Assigned at Not on file Legal Sex Female 5:07 PM TELEVISION NEWS PRODUCER Gender Identity Female 07/30/2019 2:46 PM TELEVISION NEWS PRODUCER Sexual Orientation Straight 07/30/2019 2: 46 PM TELEVISION NEWS PRODUCER documented as of this encounter Plan of Treatment Not on file documented as of this encounter Procedures Procedure Name Priority Date/Time Associated Diagnosis Comments CARDIOLOGY REPORT 12/03/2017 12: 00 AM CDT documented in this encounter Results * CARDIOLOGY REPORT (12/03/2017 12:00 AM CDT) Anatomical Region Laterality Modality Other Narrative 12/03/2017 12:00 AM CDT Ordered by an unspecified provider. us Historical Provider [facility] Final Result documented in this encounter Visit Diagnoses Not on filedocumented in this encounter Additional Health Concerns Infection Onset Date Last Indicated Resolved Time COVID: Suspected 06/23/2021 06/23/2021 07/07/2021 3:05 AM TELEVISION NEWS PRODUCER COVID: Suspected 03/11/2024 03/11/2024 03/11/2024 5:50 PM CDT documented as of this encounter Care Teams Brush Holder Inspector Relationship Specialty Start Date End Date Archana Rodríguez MD PCP - General Family Medicine 09/13/18 documented as of this encounter
--- OUTSIDE RECORDS SUMMARY | 2025-03-06 11:27 | XMS_ITS | Encounter Summary ---
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
--- OUTSIDE RECORDS SUMMARY | 2025-03-06 11:27 | XMS_ITS | Clinical Summary ---
Author Organization [facility] Office Center Address [address] [place] [address] Care Team Providers Care Visual And Stock Associate Name Role Phone Archana Rodríguez MD Primary Care Provider [phone] Allergies Active Allergy Reactions Criticality Noted Date Comments Hydrocodone-Acetaminophen Fever,Vomiting Medium 2017 Latex Swelling Medium 08/02/2017 swelling . Per pt she is not allergic Penicillin G Benzathine Rash Medium 07/10/2019 rash Medications SUMAtriptan (IMITREX) 50 mg tabletIndicatio ns:Migraine Take 1 tablet (50 mg total) by mouth once as needed for migraine May repeat dose once in 2 hours if no relief. Do not exceed 2 doses in 24 hours. Active montelukast (SINGULAIR) 10 mg tabletIndicatio ns:Sore throat Take 1 tablet (10 mg total) by mouth nightly 90 tablet 3 Active Additional Information Patient not taking.Reported on 10/15/2024 tranexamic acid (LYSTEDA) 650 mg tabletIndicatio ns:Menorrhagia with regular cycle Take 2 tablets (1,300 mg total) by mouth 3 (three) times a day 30 tablet 1 5 Active Additional Information Patient not taking.Reported on 10/15/2024 medroxyPROGESTE Adryan (PROVERA) 10 mg tablet Take 1 tablet (10 mg total) by mouth daily for 25 days Patient to take 10 mg twice a day for 10 days, and then once a day for 5 days 25 tablet 5 Active Additional Information Patient not taking.Reported on 10/15/2024 multivit no46/iron/folat e6/dha (MULTIVIT 71-RDHM-WALBVQ 6-DHA ORAL) Take by mouth Acti ve ARIPiprazole (ABILIFY) 2 mg tablet Take 1 tablet (2 mg total) by mouth daily 30 tablet 5 Active ALPRAZolam (XANAX) 0.25 mg tabletIndicatio ns:Generalized anxiety disorder Take 1 tablet (0.25 mg total) by mouth daily as needed for anxiety 30 tablet 1 5 Active Active Problems Problem Noted Date Diagnosed Date Overweight 07/27/2023 Assessment & Plan (08/16/2023 3:18 PM RETORT FIRER): Unable to lose weight on own Order phentermine Gallbladder sludge 06/28/2023 Assessment & Plan (08/16/2023 3:17 PM RETORT FIRER): Persistent Refer to general surgery Assessment & Plan (07/16/2023 5:59 AM RETORT FIRER): New Order HIDA scan Elevated liver function tests 05/24/2023 Assessment & Plan (08/16/2023 3:17 PM RETORT FIRER): Persistent Refer to general surgery Left foot pain 11/16/2022 Assessment & Plan (11/24/2022 4:23 AM CDT): New May see podiatry Sore throat 11/10/2022 Assessment & Plan (11/17/2022 7:25 AM CDT): New Order zpack, singulair, astelin Acute cough 11/10/2022 Assessment & Plan (11/17/2022 7:26 AM CDT): New Order tessalon perles Sacral pain 08/11/2022 Assessment & Plan (08/11/2022 10:55 AM RETORT FIRER): New Order xrays Order medrol, voltaren, flexeril Refer to PT Pelvic pain 08/11/2022 Assessment & Plan (08/11/2022 10:55 AM RETORT FIRER): New Order xrays Order medrol, voltaren, flexeril Refer to PT Acute bilateral low back pain without sciatica 0 08/11/2022 Assessment & Plan (08/11/2022 10:56 AM RETORT FIRER): New Order xrays Order medrol, voltaren, flexeril Refer to PT Acute non-recurrent maxillary sinusitis 07/24/19 Assessment & Plan (07/28/2022 7:59 AM RETORT FIRER): New Order zpack, flonase, claritin , singulair Mixed hyperlipidemia 07/07/2022 Assessment & Plan (10/19/2024 11:48 PM CDT): Chronic Follow low chol diet Goal: TC<200, LDL<100, TG<150 Assessment & Plan (06/15/2023 3:03 PM RETORT FIRER): Chronic Sable Diet control Goal: TC<200, LDL<100, TG<150 Assessment & Plan (11/24/2022 4:20 AM CDT): Chronic Follow low cholesterol diet Goal: TC<200, LDL<100, TG<150 Assessment & Plan (07/14/2022 5:45 AM RETORT FIRER): Chronic Follow low cholesterol diet Goal: TC<200, LDL<100 , TG<150 Weight gain 07/07/2022 Assessment & Plan (07/14/2022 5:45 AM RETORT FIRER): New Possible perimenopause Order labs Hot flashes 07/07/2022 Assessment & Plan (07/14/2022 5:45 AM RETORT FIRER): New Possible perimenopause Order labs Canker sores oral 05/19/2022 Assessment & Plan (05/26/2022 5:12 AM RETORT FIRER): New Order Magic mouthwash Neck pain 01/26/2022 Assessment & Plan (01/31/2022 7:45 PM CDT): New Order xrays Order labs: RF, ESR, uric acid Order PT Acute pain of left shoulder 01/26/2022 Assessment & Plan (01/31/2022 7:45 PM CDT): New Order xrays Order labs: RF, ESR, uric acid Order PT Left upper arm pain 01/26/2022 Assessment & Plan (01/31/2022 7:45 PM CDT): New Order xrays Order labs: RF, ESR, uric acid Order PT Left elbow pain 01/26/2022 Assessment & Plan (01/31/2022 7:45 PM CDT): New Order xrays Order labs: RF, ESR, uric acid Order PT Chronic fatigue syndrome 01/26/2022 Assessment & Plan (01/31/2022 7:46 PM CDT): Order labs Well adult exam 01/26/2022 Cellulitis of index finger, right 11/18/2021 Assessment & Plan (11/18/2021 1:04 PM CDT): New Is improving with antibiotics Finish the bactrim Bite by animal 11/18/2021 Assessment & Plan (11/18/2021 1:03 PM CDT): Area healing Breast pain, left 06/16/2021 Assessment & Plan (06/27/2021 4:14 AM RETORT FIRER): New Order cefdinir Order mammogram Intractable migraine without aura and with status migrainosus 05/27/2021 Assessment & Plan (07/16/2023 6:00 AM RETORT FIRER): Chronic Stable Cont imitrex prn Assessment & Plan (11/24/2022 4:23 AM CDT): Chronic Cont imitrex PRN Assessment & Plan (09/20/2021 10:46 AM CDT): Stable Cont imitrex prn Assessment & Plan (06/06/2021 6:09 AM RETORT FIRER): Stable Cont imitrex prn Drug abuse in remission 07/28/2020 Overview (09/19/2023): Last Assessment & Plan: Condition: stable Doing well. Reports no current or recent use. Encouraged counseling and support groups. 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 Pain of molar 03/08/2020 uterine contractions 03/08/2020 Threatened labor 03/08/2020 High degree atrioventricular block 03/08/2020 Bipolar 1 disorder 03/08/2020 Assessment & Plan (06/15/2023 3:03 PM RETORT FIRER): Uncontrolled Start abilify Assessment & Plan (10/11/2022 12:37 PM CDT): Worsening again Start vraylar Refer to psychiatrist Assessment & Plan (09/20/2021 10:45 AM CDT): Uncontrolled D/w patient importance of seeing psychiatrist MITZI I spoke with her on the phone as well I even recommended her going to the ER Assessment & Plan (06/06/2021 6:09 AM RETORT FIRER): worseing Refer back to psychiatry Generalized anxiety disorder 10/31/2019 Assessment & Plan (06/15/2023 3:04 PM RETORT FIRER): Chronic Stable Cont xanax prn Assessment & Plan (02/10/2020 3:41 PM CDT): better Assessment & Plan (11/20/2019 1:37 PM CDT): Better Will cont elavil at night Assessment & Plan (11/20/2019 1:30 PM CDT): Persistent Order elavil Generalized anxiety disorder 10/31/2019 Overview (09/19/2023): Last Assessment & Plan: Condition: stable Discussed nonpharmacologic methods including meditation and grounding exercises. Encouraged healthy diet and physical activity as tolerated and allowed by PCP. 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 Pacemaker in 2012. Rare pacing. No indication for PIECE JOBBER Pacemaker 07/31/2019 Assessment & Plan (06/28/2020 11:00 AM RETORT FIRER): Check today shows normal function. Underlying rhythm sinus. 30% a paced 16% V paced infusing. Excellent lead function and battery for 2 years. Site itself looks excellent. Assessment & Plan (07/31/2019 3:25 PM RETORT FIRER): Check today shows normal function. Underlying rhythm sinus. 60% a paced 70% V paced excellent lead function. Battery 3 years. Paroxysmal atrial fibrillation 07/31/2019 Assessment & Plan (07/31/2019 3:25 PM RETORT FIRER): In short other atrial arrhythmias. Extremely low burden. No indication for treatment Epigastric abdominal pain 07/10/2019 Assessment & Plan (07/10/2021 1:23 PM RETORT FIRER): Likely muscular strain from the intractable nausea/vomiting which has resolved May use OTC Tylenol PRN Assessment & Plan (03/30/2020 2:54 PM CDT): Chronic Refer to GI in [facility] for second opinion Assessment & Plan (02/10/2020 3:41 PM CDT): better Assessment & Plan (11/20/2019 1:36 PM CDT): To try juice plusand probiotic and then follow up with GI Assessment & Plan (11/20/2019 1:29 PM CDT): Persistent Order elavil Assessment & Plan (08/07/2019 10:14 AM RETORT FIRER): Not improved Low fat diet Refer to general surgery for gallbladder Assessment & Plan (07/23/2019 8:44 AM RETORT FIRER): Start prilosec Order labs Order CT abd/pelvis Anxiety with depression 06/17/2018 Assessment & Plan (11/24/2022 4:23 AM CDT): Chronic Cont xanax PRN Assessment & Plan (10/11/2022 12:37 PM CDT): Worsening again Start vraylar Refer to psychiatrist Assessment & Plan (05/26/2022 5:11 AM RETORT FIRER): Chronic Cont xanax PRN Breast asymmetry 11/05/2017 Elderly multigravida in second trimester 018 History of loop electrosurgi percy excision procedure (LEEP) of cervix affecting in second trimester 08/31/2017 History of uterine scar from previous surgery Bipolar disease during in second trime ster 08/31/2017 Paroxysmal atrial fibrillation 07/19/2017 Assessment & Plan (06/28/2020 11:00 AM RETORT FIRER): Longest episode 30 seconds last 6 months. No indication for additional treatment Missed menses 05/21/2017 Menorrhagia with regular cycle 12/01/2016 Constipation 10/13/2016 Assessment & Plan (03/30/2020 2:54 PM CDT): Chronic Refer to GI in [facility] for second opinion Abdominal pain 06/15/2016 Assessment & Plan (08/16/2023 3:17 PM RETORT FIRER): Persistent Refer to general surgery Assessment & Plan (07/16/2023 5:59 AM RETORT FIRER): New Order HIDA scAn Allergy status to unspecifie d drugs, medicaments and biological substances status 06/15/2016 Overview (03/08/2020): Penicillin as caused hives and fever within 1 day Latex allergy status 06/15/2016 Malabsorption due to intolerance, not elsewhere classified 06/15/2016 AV block 12/06/2015 Pacemaker 12/06/2015 Bradycardia 11/07/2015 Dysmenorrhea 11/07/2015 Bipolar depression 11/07/2015 Depression 11/07/2015 Bipolar depression 11/07/2015 Overview (09/19/2023): Last Assessment & Plan: Condition: stable Never seen mental health provider. Condition managed by PCP Medications: Member stable off of medications If taking medications, do not stop treatment without consulting healthcare provider. If symptoms worsen or do not improve/stabilize, notify health care provider right away. If thoughts of harming self or others notify health care provider immediately &/or seek urgent/emergent care including calling Suicide Hotline ( ) or 912. Follow up in three months with PCP Resolved Problems Problem Noted Date Diagnosed Date Resolved Date Syncope 03/08/2020 05/27/2021 History of migraine headaches 08/31/2017 05/27/2021 Migraine without status migr ainosus, not intractable 11/07/2015 05/27/2021 Encounters Date Type Department Care Team Description 01/22/2025 Telephone [facility] Family [facility] [address] [place] [address] Archana Rodríguez MD from Last 3 Months Immunizations Immunization Administration Dates Next Due DTaP 01/02/2018,01/02/2018 Influenza, Unspecified 03/18/2024(Deferr ed: Patient Refused),03/19/2023(Deferred: Patient Refused),05/19/2022(Deferred: Patient Refused),03/19/2020(Deferred: Patient Refused),07/10/2019 Sars-CoV-2, Unspecified 05/27/2021(Deferred: Pat ient Refused) Surgical History Surgery Date Site/Laterality Comments INSERT / REPLACE / REMOVE PACEMAKER 06/18/2012 - 06/17/2013 BREAST MASS EXCISION Left age 18 benign SECTION 01/02/18 09/16/2008 01/02/2018 3 SECTION 01/02/18 09/16/2008 01/02/2018 SECTION 01/02/18 09/16/2008 01/02/2018 APPENDECTOMY 20 years ago FOOT SURGERY left BREAST SURGERY INSERT / REPLACE / REMOVE PACEMAKER 10/17/2023 - 11/16/2023 Pacemaker replaced Medical History Medical History Date Comments Pacemaker left side Anxiety Always Bipolar 1 disorder (HCC) 2011 Abnormal Pap smear of cervix LP 09/14/2021 + LSIL + HPV Alcohol abuse Depression Migraines Menstrual problem Family History Medical History Relation Name Comments Depression Brother Tommy Drug abuse Brother Tommy No Known Problems Daughter No Known Problems Father Colon cancer Maternal Grandmother Alcohol abuse Mother Cheryl COPD Mother Cheryl Depression Mother Cheryl Diabetes Mother Cheryl Liver disease Mother Cheryl No Known Problems Son 1 No Known Problems Son 2 Breast cancer Neg Hx Ovarian cancer Neg Hx Pancreatic cancer Neg Hx Prostate cancer Neg Hx Uterine cancer Neg Hx Relation Name Status Comments Brother Tommy Alive Daughter Alive Father Alive Maternal Grandmother Mother Cheryl Alive Son 1 Alive Son 2 Social History Tobacco Use Types Packs/Day Years Used Date Smoking Tobacco: Former Cigarettes Q uit: 06/18/2021 Vaping Smokeless Tobacco: Former Quit: 10/16/2021 Tobacco Cessation:Counseling Given: Not Answered Comments:6 months Alcohol Use Standard Drinks/Week Comments Yes 0 (1 standard drink = 0.6 oz pur e alcohol) socially AUDIT-C Answer Date Recorded Q1: How often do you have a drink containing alcohol? Never 07/02/2024 Q2: How many drinks containi ng alcohol do you have on a typical day when you are drinking? Patient does not drink Q3: How often do you have si x or more drinks on one occasion? Never 07/02/2024 PHQ-2 Answer Date Recorded PHQ-2 Total Score (If total score is 3 or more points, staff should administer the PHQ-9) 0 01/10/2024 Personal Safety Answer Date Recorded Getting School Help Needed Denies 05/30 Comments No Sex and Gender Information Value Date Recorded Sex Assigned at Not on file Legal Sex Female 5:07 PM RETORT FIRER Gender Identity Female 07/30/2019 2:46 PM RETORT FIRER Sexual Orientation Straight 07/30/2019 2: 46 PM RETORT FIRER Obstetrics History Para Term AB IAB SAB Ectopic Multiple Livin g Live Births 6 4 1 2 2 3 1 Date Outcome GA Total Labor Labor/2nd/3rd Weight Sex Type Anes PTL Martha A1 A5 Name Clin Para Para Para SAB SAB 01/09 Term 39w 0d 3.6 kg (7 lb 15 oz) M C-S j incis Living Last Filed Vital Signs Vital Sign Reading Time Taken Comments Blood Pressure 108/76 10/13/2024 12:46 PM CDT Pulse 82 07/02/2024 9:51 AM RETORT FIRER Temperature 36.4 C (97.6 F) 07/02/2024 9:51 AM RETORT FIRER Respiratory Rate 18 03/26/2024 5:05 PM CDT Oxygen Saturation 97% 07/02/2024 9:51 AM RETORT FIRER Inhaled Oxygen Concentration - - Weight 60.8 kg (134 lb) 10/15/2024 11:13 AM CDT Height 157.5 cm (5' 2) 10/15/2024 11:13 AM CDT Body Mass Index 24.51 10/15/2024 11:13 AM CDT Plan of Treatment Health Maintenance Due Date Last Done Comments Varicella Vaccines (1 of 2 - 13+ 2-dose series) 1995 Hepatitis B Screening 01/04/2000 HPV Vaccines (1 - 3-dose SCDM series) 2009 Cervical Cancer Screening 06/21/20242023, 09/14/2021, 07/23/2020, Additional history exists Regular Well Visit/Exam 18-64 06/21/2024 06/21/2023, 09/14/2021, 07/23/2020, Additional history exists Depression Screening 01/09/2025 01/10/2024, 10/11/2022, 09/09/2021, Additional history exists Influenza Vaccine (#1) 2025 07/10/2019 Breast Cancer Screening-Mammogram 10/06/2025 10/06/2024, 02/15/2023, 07/27/2021 DTaP/Tdap/Td Vaccine (3 - Tdap) 2028 01/02/2018, 01/02/2018 Hepatitis C Screening Completed 05/29/2017 Pneumococcal vaccine <65 Aged Out No longer eligible based on patient's age to complete this topic Procedures Procedure Name Priority Date/Time Associated Diagnosis Comments SCREENING MAMMOGRAM BILATERAL W MATT Schedule Routine, Read Routine (OP Routine) 10/06/2024 8:55 AM CDT Encounter for screening mammogram for malignant neoplasm of breast PAP AND HIGH RISK HPV, REFLEX TO GENOTYPING Routine 06/21/2023 10:47 AM RETORT FIRER Encounter for well woman exam with routine gynecological exam HEPATITIS C ANTIBODY Routine 05/29/2017 3:52 PM RETORT FIRER from Last 3 Months or Most Recently Relevant to Health Maintenance Results * SCREENING MAMMOGRAM BILATERAL W MATT (10/06/2024 8:55 AM CDT) Anatomical Region Laterality Modality Breast Bilateral Mammography Impressions 10/06/2024 9:39 AM CDT Bilateral No evidence of malignancy in either breast. OVERALL BI-RADS FINAL ASSESSMENT: 1 - Negative RECOMMENDATION: Recommend bilateral annual screening mammography. Narrative 10/06/2024 9:39 AM CDT EXAMINATION: SCREENING MAMMOGRAM BILATERAL W MATT: 10/06/2024 COMPARISON: Relevant prior studies available at the time of interpretation were reviewed. TECHNIQUE: Mammography was performed with 2D and digital breast tomosynthesis (DBT) images. CAD was utilized. BREAST PARENCHYMAL COMPOSITION: The breasts are heterogeneously dense, which may obscure small masses. FINDINGS: Bilateral There is no suspicious mass, calcification, or architectural distortion in either breast.A pacing device obscures a portion of the left axilla. us Christine Cevallos NP IMG MAMMO PROCEDURES Final Resu lt * Pap and High Risk HPV and Genotyping (Cytology Component) (06/21/2023 10:47 AM RETORT FIRER) Vaginal (Pap test) 06/21/2023 10:47 AM RETORT FIRER 06/25/2023 1:57 PM RETORT FIRER Narrative PATHOLOGY [facility] - 06/29/2023 7:47 AM RETORT FIRER EPIC results best viewed via link to PDF [facility]ology [place], [place] [id number] Note to Patients: This report may contain a detailed description of human tissue sent by a health care provider to the laboratory for pathologic evaluation. The content of this report is essential for diagnosis and may provide important critical findings. This information may be unfamiliar to patients to review without a medical professional present. It is advised that the patient review this report in the presence of a health care provider who can answer questions and explain the details. CYTOPATHOLOGY REPORT FINAL Patient Name: NORMA LONDONO Gender: F : 1980 (Age: 43) Address: [address] [place] [id number] [facility] #: [id number] Service: UNKNOWN Location: Patient Type: [facility] SPECIMEN Taken: 06/21/2023 Received: 06/25/2023 Accessioned: 06/25/2023 Reported: 06/29/2023 Physician(s): Rui Villatoro FINAL INTERPRETATION SOURCE OF SPECIMEN Liquid based Thin Prep pap with HPV: STATEMENT OF ADEQUACY - Satisfactory for evaluation, vaginal smear GENERAL CATEGORIZATION: - Negative for squamous intraepithelial lesion or malignancy Comments (Normal-Negative for High Risk HPV) HPV HR 16 vaginal- Negative HPV HR 18 vaginal- Negative HPV HR non 16/18 vaginal- Negative Comment: The following Other High Risk HPV types were not detected: 31, 33, 35, 39, 45, 51, 52, 56, 58, 59, 66, and 68 ADDITIONAL INFORMATION Testing was performed using the mercedes HPV assay ([employer] This test has been modified from the mink slicer's instructions. Its performance characteristics were determined by [facility] in a manner consistent with CLIA requirements. This test has not been cleared or approved by the U.S. Food and Drug Administration. Test Performed by: [place] [address] Customer Service Supervisor: Tonny Anand M.D. Ph.D.; CLIA# [id number] This specimen has been rescreened in accordance with this laboratory's Spring Assembler Program. 06/29/2023 07:47 ANDREY Stratton MS(ASCP)PA Report Electronically Reviewed and Signed Out By ANDREY Rosales(ASCP) 06/29/2023 07:47:09 Cervicovaginal Cytology (Pap Test) Disclaimer: The Pap test is a screening test used to detect cervical cancer and its precursors; it is not a diagnostic procedure. False negative and false positive results do occur. Pap test results should be interpreted in the context of pertinent clinical information and biopsy results as indicated. [facility] Clinical Laboratory Improvement Amendments (CLIA) mandate that cytologic and histologic results be correlated for laboratory dairy quality assurance officer & improvement standards. FOR ALL HIGH-GRADE CASES we request submission of follow-up histological material and/or reports that have not been previously provided so that we may fulfill said required standards. Gross Description A. Liquid based Thin Prep pap with HPV: Vaginal - Screening ThinPrep Clinical Diagnosis and History Last Menstrual Period: 05/28/2023 The patient is a 43 year old woman with screening pap. Report Images and scanned documents, if included only viewable in PDF version The performance characteristics of some immunohistochemical stains, in-situ hybridization and fluorescence in-situ hybridization tests and immunophenotyping by flow cytometry cited in this report (if any) were determined by the Surgical Pathology Department at [facility] as part of an ongoing housing quality standard inspector program and in compliance with federally mandated regulations drawn from the Clinical Laboratory Improvement Act of 1988 (CLIA '88). Some of these tests rely on the use of analyte specific reagents and are subject to specific labeling requirements by the US Food and Drug Administration. Such diagnostic tests may only be performed in a facility that is certified by the Department of Health and Human Services as a high complexity laboratory under CLIA '88. The FDA has determined that such clearance or approval is not necessary. This test is used for clinical purposes. It should not be regarded as investigational or for research. Nevertheless, federal rules concerning the medical use of analyte specific reagents require that the following disclaimer be attached to the report: This test was developed and its performance characteristics determined by the Surgical Pathology Department of [facility]. It has not been cleared or approved by the U. S. Food and Drug Administration. Sandra Armando NP LAB CYTOLOGY ORDERABLES Final Result PATHOLOGY [facility] * Hepatitis C antibody (05/29/2017 3:52 PM RETORT FIRER) Hep C Ab NONREACT NONREACTIVE 05/29/2017 8:03 PM RETORT FIRER [facility] HISTORICAL RESULTS Comment: [employer] using PONCE (chemiluminescent immunoassay) technology. NONREACTIVE: Antibodies to Hepatitis C not detected. This does not exclude early acute Hepatitis C infection, possibility of exposure to Hepatitis C, antibodies below detection limit, or to lack of antibody reactivity to the antigen used in this assay. EQUIVOCAL: Antibodies to Hepatitis C may or may not be present. Sample to be confirmed by real-time PCR method. REACTIVE: Antibodies to Hepatitis C detected. 05/29/2017 3:52 PM RETORT FIRER 05/29/2017 3:56 PM RETORT FIRER Mireya Maryanngema Clinton DO LAB MICROBIOLOGY - GEN ERAL ORDERABLES Final Result [facility] HISTORICAL RESULTS from Last 3 Months or Most Recently Relevant to Health Maintenance Insurance [facility] CHOICE PLUS [facility] H[facility]/PPO Address: [place] [address] Care Teams Visual And Stock Associate Relationship Specialty Start Date End Date Archana Rodríguez MD PCP - General Family Medicine 09/13/18
--- OUTSIDE RECORDS SUMMARY | 2025-03-06 11:27 | XMS_ITS | Encounter Summary ---
Author Organization [facility] Care Team Providers Care Children'S Minister Name Role Phone Archana Rodríguez MD Primary Care Provider [phone] Encounter Details Date Type Department Care Team (Latest Contact Info) Description 06/24/2018 Orders Only [facility] CLINCONV ProviderLacey MD [address] [place] [id number] Social History Tobacco Use Types Packs/Day Years Used Date Smoking Tobacco: Never Assessed Comments Unknown Sex and Gender Information Value Date Recorded Sex Assigned at Not on file Legal Sex Female 5:07 PM MANAGER MARKETING COMMUNICATIONS Gender Identity Female 07/30/2019 2:46 PM MANAGER MARKETING COMMUNICATIONS Sexual Orientation Straight 07/30/2019 2: 46 PM MANAGER MARKETING COMMUNICATIONS documented as of this encounter Plan of Treatment Not on file documented as of this encounter Procedures Procedure Name Priority Date/Time Associated Diagnosis Comments CARDIOLOGY REPORT 06/24/2018 12: 00 AM MANAGER MARKETING COMMUNICATIONS documented in this encounter Results * CARDIOLOGY REPORT (06/24/2018 12:00 AM MANAGER MARKETING COMMUNICATIONS) Anatomical Region Laterality Modality Other Narrative 06/24/2018 12:00 AM MANAGER MARKETING COMMUNICATIONS Ordered by an unspecified provider. us Historical Provider [facility] AN LINDO Final Result documented in this encounter Visit Diagnoses Not on filedocumented in this encounter Additional Health Concerns Infection Onset Date Last Indicated Resolved Time COVID: Suspected 06/23/2021 06/23/2021 07/07/2021 3:05 AM MANAGER MARKETING COMMUNICATIONS COVID: Suspected 03/11/2024 03/11/2024 03/11/2024 5:50 PM CDT documented as of this encounter Care Teams Children'S Minister Relationship Specialty Start Date End Date Archana Rodríguez MD PCP - General Family Medicine 09/13/18 documented as of this encounter
--- OUTSIDE RECORDS SUMMARY | 2025-03-06 11:27 | XMS_ITS | Encounter Summary ---
Author Organization [facility] Address [address] [place] [address] Care Team Providers Care Heel Scorer Name Role Phone Ruby Negron MD Unavailable Archana Singh MD Primary Care Provider [phone]- [phone] Encounter Details Date Type Department Care Team (Late st Contact Info) Description 04/09/2023 [employer] [facility] Business Office [address] [place] [address] Lilian, [facility] Provider Action needed Social History Tobacco Use Types Packs/Day Years [...] 04/12/2025 2:00 PM CDT Allied Health/Nurse Visit [facility], [address] [place], [place] [phone] Dickson Rubio MD Three [facility]. Ken [address] [place] [address] 04/13/2025 2:20 PM CDT Allied Health/Nurse Visit [facility] THREE [facility], [address] [place] [address] Ruby Negron MD Three [facility]. [address] [place] [address] 12/21/2025 10:00 AM CDT Office Visit [facility], [address] [place] [address] Ruth Clark, CLARICE 3 [facility], [facility] [address] [place] [address] documented as of this encounter Visit Diagnoses Not on filedocumented in this encounter Care Teams Heel Scorer Relationship Specialty Start Date End Date Archana Singh MD Three [facility]. [address] [place] [address] PCP - General FAMILY PRACTICE 03/14/21 Ruby Negron MD [facility]. [address] [place] [address]scape Architect CLINICAL CARDIAC ELECTROPHYSIOLOGY 12/10/18 documented as of this encounter
--- OUTSIDE RECORDS SUMMARY | 2025-03-06 11:27 | XMS_ITS | Encounter Summary ---
Author Organization [facility] Care Team Providers Care Operator Maintainer Name Role Phone Archana Rodríguez MD Primary Care Provider [phone] Encounter Details Date Type Department Care Team (Latest Contact Info) Description 10/13/2016 Orders Only [facility] CLINCONV ProviderLacey MD [address] [place] [address] Social History Tobacco Use Types Packs/Day Years Used Date Smoking Tobacco: Never Assessed Comments Unknown Sex and Gender Information Value Date Recorded Sex Assigned at Not on file Legal Sex Female 5:07 PM SUPERVISOR FILES Gender Identity Female 07/30/2019 2:46 PM SUPERVISOR FILES Sexual Orientation Straight 07/30/2019 2: 46 PM SUPERVISOR FILES documented as of this encounter Plan of Treatment Not on file documented as of this encounter Procedures Procedure Name Priority Date/Time Associated Diagnosis Comments SCAN - LABS 10/16/2016 12:00 AM CDT documented in this encounter Results * SCAN - LABS (10/16/2016 12:00 AM CDT) Narrative 10/16/2016 12:00 AM CDT Ordered by an unspecified provider. us Historical Provider Final Res ult documented in this encounter Visit Diagnoses Not on filedocumented in this encounter Additional Health Concerns Infection Onset Date Last Indicated Resolved Time COVID: Suspected 06/23/2021 06/23/2021 07/07/2021 3:05 AM SUPERVISOR FILES COVID: Suspected 03/11/2024 03/11/2024 03/11/2024 5:50 PM CDT documented as of this encounter Care Teams Operator Maintainer Relationship Specialty Start Date End Date Archana Rodríguez MD PCP - General Family Medicine 09/13/18 documented as of this encounter
[2025-03-06 11:34] VITALS: BP 135/84; PULSE 64; RESP 18; TEMP 36.8; O2SAT 100
--- NOTE | 2025-03-06 11:36 | ECG_ITS ---
Test Date: 2025-03-06 11:46:45 Measurements Intervals Hines Rate: 60 P: 117 ND: 200 QRS: 68 QRSD: 84 T: 67 QT: 430 QTc: 430 Interpretive Statements ELECTRONIC ATRIAL PACEMAKER ATYPICAL ECG No previous ECG available for comparison Electronically Signed On 03-06-2025 13:07:01 CDT by Isidoro Fuller M.D.
[2025-03-06 12:10] LABS: Hematocrit 37.1 % (37.0-47.0); Hemoglobin 12.5 g/dL (12.0-15.0); Immature Granulocyte Percent A 0.1 % (0-0.5); Lymphocytes Absolute Auto 1.66 K/mm3 (0.9-3.2); Mean Corpuscular HGB Conc 33.7 g/dl (32-36); Mean Corpuscular Hemoglobin 32.3 pg (26-34); Mean Corpuscular Volume 95.9 fl (80-100); Nucleated Red Blood Cells Absolute Auto 0.000 K/mm3 (0.0-0.012); Nucleated Red Blood Cells Perc 0.0 % (0.0-0.2); Platelet Count Result 190 k/mm3 (150-375); Red Blood Count 3.87 M/mm3 (4.2-5.4); White Blood Count 7.1 K/mm3 (4.5-10.0)
[2025-03-06 12:30] LABS: Alanine Aminotransferase 22 U/L (6-35); Albumin Level 4.5 g/dL (3.5-5.1); Alkaline Phosphatase 67 U/L (38-126); Anion Gap 11 mmol/L (4-12); Aspartate Amino Transferase 32 U/L (14-36); Bilirubin,Total 0.6 mg/dL (0.2-1.3); Blood Urea Nitrogen 9 mg/dL (7-17); Calcium 8.9 mg/dL (8.4-10.2); Carbon Dioxide 20 mmol/L (22-30); Chloride 105 mmol/L (98-107); Estimated CRCL calculation 98 ml/min; Estimated Glomerular Filt Rate > 60; Glucose 97 mg/dL (65-110); Lipase 86 U/L (23-300); Potassium 3.7 mmol/L (3.4-5.0); Sodium 136 mmol/L (137-145); Total Protein 7.6 g/dL (6.3-8.2)
--- NOTE | 2025-03-06 13:36 | ED.ABDPAIN ---
HPI - Abdominal Pain General Chief Complaint: Abdominal Pain Stated Complaint: gallbladder attack Time Seen by Provider: 03/06/25 13:35 Source: patient Mode of arrival: ambulatory Limitations: no limitations History of Present Illness HPI narrative: 45 years old white female drove herself to the emergency room complaining of home right abdominal tightness started 2 days ago, intermittent in the last few hours steady radiating to the right flank area associated with nausea and vomiting. Worse when she drinks or eats, better if she staying still. Patient denies smoking cigarettes, drink alcohol occasionally, uses marijuana almost daily. History of section, appendectomy, she denies any fever or chills diarrhea or constipation or urinary symptoms. Related Data Allergies Allergy/AdvReac Type Severity Reaction Status Date / Time Penicillins Allergy Unknown Unknown Verified 03/06/25 11:36 penicillin G Allergy Hives Verified 03/06/25 11:36 latex AdvReac Unknown Unknown Verified 03/06/25 11:36 Review of Systems Review of Systems: All systems reviewed & are unremarkable except as noted in HPI and below PMFSH Past Medical History Medical History Patient denies significant medical history Social History Social History Smoking status: Never smoker Exam Narrative: General appearance: Well-developed, well-nourished Skin: Normal color Head: Normocephalic, nontraumatic Eyes: Clear conjunctiva ENT: Oropharynx normal, ears normal, nose normal Neck: Supple, nontender Chest and respiratory: Airway patent, no respiratory distress, no accessory muscle use Heart: Regular rate/rhythm Abdomen: Soft, tenderness right upper quadrant and epigastric area , no organomegaly, quiet bowel sounds Vascular: Normal peripheral pulses, normal capillary refill. Musculoskeletal: Normal range of motion, nontender back Neurologic: Alert and oriented ?3, CONTACT LENS BLOCKER AND CUTTER is normal as tested, no gross motor deficit Course Consultations Consultation #1: Dr. Delgado Discharged on Protonix Date: 03/06/25 Time: 16:06 Vital Signs Vital signs: Vital Signs Temperature 36.8 C 03/06/25 11:34 Pulse Rate 64 03/06/25 11:34 Respiratory Rate 18 03/06/25 11:34 Blood Pressure 135/84 03/06/25 11:34 Pulse Oximetry 100 03/06/25 11:34 Oxygen Delivery Room Air 03/06/25 11:34 Temperature 36.8 C 03/06/25 11:34 Pulse Rate 64 03/06/25 11:34 Respiratory Rate 18 03/06/25 11:34 Blood Pressure 135/84 03/06/25 11:34 Pulse Oximetry 100 03/06/25 11:34 Oxygen Delivery Room Air 03/06/25 11:34 MDM - Abdominal Pain MDM Narrative Medical decision making narrative: Patient came to the ED with right abdominal pain for the last 2 days Vital signs are stable Physical examination showing tenderness in the epigastric and right upper quadrant, no guarding or rebound Differential diagnosis include pancreatitis, cholecystitis, gastritis, esophagitis, constipation, colitis, diverticulitis. Blood workup today includes CBC, CMP, lipase showed no significant abnormality Urinalysis showed no evidence of infection CT abdomen and pelvis with IV contrast showed possible gastritis, peptic ulcer disease. 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 And usually treated with clear liquid diet for few days. Dr. Delgado agreed with discharged on Protonix and to get EGD within 1 week Diagnosis abdominal pain, possible gastritis, possible peptic ulcer disease Discharged on Protonix and follow-up with plant care worker The pt was discharged to home.the pt,s condition upon discharge was fair,education was provided to the pt in reference to the final impression,discharge study results,treatment,prognosis and need for follow up . Differential Diagnosis Differential diagnosis: Likely other (As above) Medical Records Attestation: I reviewed the patient's medical records. Lab Data Attestation: I reviewed the patient's lab results. 03/06/25 12:01 03/06/25 12:01 Labs: Lab Results 03/06/25 03/06/25 Range/Units 12:01 13:23 WBC 7.1 (4.5-10.0) K/mm3 RBC 3.87 L (4.2-5.4) M/mm3 Hgb 12.5 (12.0-15.0) g/dL Hct 37.1 (37.0-47.0) % MCV 95.9 (80-100) fl MCH 32.3 (26-34) pg MCHC 33.7 (32-36) g/dl RDW 12.0 (11.5-14.5) % Plt Count 190 (150-375) k/mm3 MPV 11.9 H (7.4-10.4) fl Immature Gran % (Auto) 0.1 (0-0.5) % Neut % (Auto) 68.6 (45.5-73.1) % Lymph % (Auto) 23.5 (18.3-44.2) % Moffat % (Auto) 6.8 (2.6-8.5) % Eos % (Auto) 0.6 (0-4.4) % Baso % (Auto) 0.4 (0.2-1.2) % Lymph # (Auto) 1.66 (0.9-3.2) K/mm3 Moffat # (Auto) 0.5 (0.1-0.6) K/mm3 Eos # (Auto) 0.0 (0-0.3) K/mm3 Baso # (Auto) 0.0 (0.0-0.1) K/mm3 Abs Immat Gran (auto) 0.01 (0.00-0.031) K/mm3 Absolute Neuts (auto) 4.9 (1.3-6.7) K/mm3 Absolute Nucleated RBC 0.000 (0.0-0.012) K/mm3 Nucleated RBC % 0.0 (0.0-0.2) % Sodium 136 L (137-145) mmol/L Potassium 3.7 (3.4-5.0) mmol/L Chloride 105 (98-107) mmol/L Carbon Dioxide 20 L (22-30) mmol/L Anion Gap 11 (4-12) mmol/L BUN 9 (7-17) mg/dL Creatinine 0.51 L (0.7-1.0) mg/dL Estim Creat Clear Calc 98 ml/min Estimated GFR > 60 (59 - ) Glucose 97 (65-110) mg/dL Calcium 8.9 (8.4-10.2) mg/dL Total Bilirubin 0.6 (0.2-1.3) mg/dL AST 32 (14-36) U/L ALT 22 (6-35) U/L Alkaline Phosphatase 67 (38-126) U/L Total Protein 7.6 (6.3-8.2) g/dL Albumin 4.5 (3.5-5.1) g/dL Lipase 86 (23-300) U/L Urine Color Yellow (Yellow) Urine Appearance Clear (Clear) Urine pH 5.5 (5.0-9.0) Ur Specific Anderson 1.027 (1.001-1.035) Urine Protein Negative (Negative) mg/dL Urine Glucose (UA) Negative (Negative) mg/dL Urine Ketones 1+ H (Negative) mg/dL Ur Blood (Man) 1+ H (Negative) Urine Nitrate Negative (Negative) Urine Bilirubin Negative (Negative) Urine Urobilinogen 1.0 (<2.0) mg/dL Leukocyte Esterase Rfl Negative (Negative) NERY/UL Urine RBC 3-5 H (0-2) /hpf Urine WBC 0-5 (0-3) /hpf Ur Squamous Epith Cells Few (Few) /hpf Urine Bacteria None seen /hpf Urine Casts 0-2 Urine Test Negative Imaging Data Radiologist's impression: ITS Impressions Abdomen/Pelvis CT 03/06/25 14:46 IMPRESSION: 1. Edematous wall thickening at the gastric antrum suggestive of either peptic ulcer disease or focal gastritis which could be infectious or inflammatory in etiology. 2. Very small fat-containing left inguinal hernia. Critical Care Time Critical Care Time Critical Care Time: No Discharge Plan Discharge Clinical Impression: Abdominal pain, Gastritis Patient Disposition: Home Condition: Stable Instructions: Gastritis (DC), Clear Liquid Diet (ED), Abdominal Pain (ED) Additional Instructions: Return if symptoms are worsening , call your family physician/plant care worker for appointment, take Tylenol as as needed for aches and pain, continue home medications. Patient Language: Sammarinese Prescriptions: New pantoprazole [Protonix] 40 mg tablet,delayed release (DR/EC) 40 mg PO QAM 30 Days Qty: 30 0RF Follow-up/Referrals: PHYSICIAN NOT ON STAFF,NONSTAFF [Primary Care Provider] Raji Maier MD [Physician, Gastroenterology] - 03/09/25
[2025-03-06 13:38] LABS: Add Urine Microscopic? YES; Appearance Urine Clear (Clear); Glucose Urine UA Negative (Negative); Leukocyte Esterase Ur Negative LEU/UL (Negative); Nitrate Urine Negative (Negative); Non Pathogenic Casts 0-2; Specific Grav Ur 1.027 (1.001-1.035)
--- OUTSIDE RECORDS SUMMARY | 2025-03-06 13:56 | XMS_ITS | Encounter Summary ---
Author Organization [facility] Address [address] [place] [address] Care Team Providers Care Adaptive Physical Education Specialist Name Role Phone Ruby Negron MD Unavailable Archana Singh MD Primary Care Provider [phone]- [phone] Encounter Details Date Type Department Care Team (Late st Contact Info) Description 11/08/2023 [employer] Systemst Message Enc [facility], [facility] [address] [place], [place] [id number] Olga Skelton PA-C Blood work question Social [...] 04/12/2025 2:00 PM CDT Allied Health/Nurse Visit [facility], [place] [place], [place] [id number] Dickson Rubio MD [facility]. [facility] [address] [place], [place] [address] 04/13/2025 2:20 PM CDT Allied Health/Nurse Visit [facility] THREE [facility], [address] [place] [address] Ruby Negron MD Three [facility]. [address] [place] [address] 12/21/2025 10:00 AM CDT Office Visit [facility] THREE [facility], [address] [place], [place] [address] Ruth Clark, CLARICE 3 [facility], [address] [place], [place] [address] documented as of this encounter Visit Diagnoses Not on filedocumented in this encounter Care Teams Adaptive Physical Education Specialist Relationship Specialty Start Date End Date Archana Singh MD Three [facility]. [facility] [place] [address] PCP - General FAMILY PRACTICE 03/14/21 Ruby Negron MD Three [facility]. [facility] [address] [place] [address] EP Appellate Law Clerk CLINICAL CARDIAC ELECTROPHYSIOLOGY 12/10/18 documented as of this encounter
--- OUTSIDE RECORDS SUMMARY | 2025-03-06 13:56 | XMS_ITS | Encounter Summary ---
Author Organization [facility] Address [address] [place] [address] Care Team Providers Care Band Saw Marker Name Role Phone Ruby Negron MD Unavailable Archana Singh MD Primary Care Provider +1- [phone] Encounter Details Date Type Department Care Team (Late st Contact Info) Description 10/04/2023 Kicksend Message Enc [facility], [facility] [address] [place], [place] [phone] [facility], [facility] Provider Carelink Transmission Received Social History [...] 04/12/2025 2:00 PM CDT Allied Health/Nurse Visit [facility] THREE [facility], [facility] [address] [place], [place] [id number] Dickson Rubio MD [facility]. [facility] [address] [place], [place] [id number] 04/13/2025 2:20 PM CDT Allied Health/Nurse Visit [facility] THREE [facility], [address] [place] [address] Ruby Negron MD Three [facility]. [address] [address] [place] [address] 12/21/2025 10:00 AM CDT Office Visit [facility] THREE [facility], [address] [place], [place] [address] Ruth Clark, CLARICE 3 [facility], [address] [place] [address] documented as of this encounter Visit Diagnoses Not on filedocumented in this encounter Care Teams Band Saw Marker Relationship Specialty Start Date End Date Archana Singh MD Three [facility]. [place] [address] [place] [address] PCP - General FAMILY PRACTICE 03/14/21 Ruby Negron MD Three [facility]. [place] [address] [place], [place] [address] EP Workers Compensation Administrator CLINICAL CARDIAC ELECTROPHYSIOLOGY 12/10/18 documented as of this encounter
--- OUTSIDE RECORDS SUMMARY | 2025-03-06 13:56 | XMS_ITS | Clinical Summary ---
Author Organization [facility] Office Center Address [address] [place] [address] Care Team Providers Care Freight Inspector Name Role Phone Archana Rodríguez MD Primary Care Provider +1 [phone] Allergies Active Allergy Reactions Criticality Noted Date [...] taking.Reported on 10/15/2024 multivit no46/iron/folat e6/dha (MULTIVIT 28-VFWF-WSQUEJ 6-DHA ORAL) Take by mouth Acti ve [...] 07/27/2023 Assessment & Plan (08/16/2023 3:18 PM INFRASTRUCTURE MANAGER): Unable to lose weight on own Order phentermine Gallbladder sludge 06/28/2023 Assessment & Plan (08/16/2023 3:17 PM INFRASTRUCTURE MANAGER): Persistent Refer to general surgery Assessment & Plan (07/16/2023 5:59 AM INFRASTRUCTURE MANAGER): New Order HIDA scan Elevated liver function tests 05/24/2023 Assessment & Plan (08/16/2023 3:17 PM INFRASTRUCTURE MANAGER): Persistent Refer to general surgery Left foot pain 11/16/2022 Assessment & Plan (11/24/2022 4:23 AM CDT): New May see podiatry Sore throat 11/10/2022 Assessment & Plan (11/17/2022 7:25 AM CDT): New Order zpack, singulair, astelin Acute cough 11/10/2022 Assessment & Plan (11/17/2022 7:26 AM CDT): New Order tessalon perles Sacral pain 08/11/2022 Assessment & Plan (08/11/2022 10:55 AM INFRASTRUCTURE MANAGER): New Order xrays Order medrol, voltaren, flexeril Refer to PT Pelvic pain 08/11/2022 Assessment & Plan (08/11/2022 10:55 AM INFRASTRUCTURE MANAGER): New Order xrays Order medrol, voltaren, flexeril Refer to PT Acute bilateral low back pain without sciatica 0 08/11/2022 Assessment & Plan (08/11/2022 10:56 AM INFRASTRUCTURE MANAGER): New Order xrays Order medrol, voltaren, flexeril Refer to PT Acute non-recurrent maxillary sinusitis 07/24/19 Assessment & Plan (07/28/2022 7:59 AM INFRASTRUCTURE MANAGER): New Order zpack, flonase, claritin , singulair Mixed hyperlipidemia 07/07/2022 Assessment & Plan (10/19/2024 11:48 PM CDT): Chronic Follow low chol diet Goal: TC<200, LDL<100, TG<150 Assessment & Plan (06/15/2023 3:03 PM INFRASTRUCTURE MANAGER): Chronic Sable Diet control Goal: TC<200, LDL<100, TG<150 Assessment & Plan (11/24/2022 4:20 AM CDT): Chronic Follow low cholesterol diet Goal: TC<200, LDL<100, TG<150 Assessment & Plan (07/14/2022 5:45 AM INFRASTRUCTURE MANAGER): Chronic Follow low cholesterol diet Goal: TC<200, LDL<100 , TG<150 Weight gain 07/07/2022 Assessment & Plan (07/14/2022 5:45 AM INFRASTRUCTURE MANAGER): New Possible perimenopause Order labs Hot flashes 07/07/2022 Assessment & Plan (07/14/2022 5:45 AM INFRASTRUCTURE MANAGER): New Possible perimenopause Order labs Canker sores oral 05/19/2022 Assessment & Plan (05/26/2022 5:12 AM INFRASTRUCTURE MANAGER): New Order Magic mouthwash Neck pain 01/26/2022 [...] 06/16/2021 Assessment & Plan (06/27/2021 4:14 AM INFRASTRUCTURE MANAGER): New Order cefdinir Order mammogram Intractable migraine without aura and with status migrainosus 05/27/2021 Assessment & Plan (07/16/2023 6:00 AM INFRASTRUCTURE MANAGER): Chronic Stable Cont imitrex prn Assessment & Plan (11/24/2022 4:23 AM CDT): Chronic Cont imitrex PRN Assessment & Plan (09/20/2021 10:46 AM CDT): Stable Cont imitrex prn Assessment & Plan (06/06/2021 6:09 AM INFRASTRUCTURE MANAGER): Stable Cont imitrex prn Drug abuse in remission 07/28/2020 Overview (09/19/2023): Last Assessment & Plan: Condition: stable Doing well. Reports no current or recent use. Encouraged counseling and support groups. 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 Pain of molar 03/08/2020 uterine contractions 03/08/2020 Threatened labor 03/08/2020 High degree atrioventricular block 03/08/2020 Bipolar 1 disorder 03/08/2020 Assessment & Plan (06/15/2023 3:03 PM INFRASTRUCTURE MANAGER): Uncontrolled Start abilify Assessment & Plan (10/11/2022 12:37 PM CDT): Worsening again Start vraylar Refer to psychiatrist Assessment & Plan (09/20/2021 10:45 AM CDT): Uncontrolled D/w patient importance of seeing psychiatrist MITZI I spoke with her on the phone as well I even recommended her going to the ER Assessment & Plan (06/06/2021 6:09 AM INFRASTRUCTURE MANAGER): worseing Refer back to psychiatry Generalized anxiety disorder 10/31/2019 Assessment & Plan (06/15/2023 3:04 PM INFRASTRUCTURE MANAGER): Chronic Stable Cont xanax prn Assessment & [...] 08/07/2019 Assessment & Plan (08/07/2019 10:14 AM INFRASTRUCTURE MANAGER): New Refer to general surgery Right ovarian cyst 08/07/2019 Assessment & Plan (08/07/2019 10:14 AM INFRASTRUCTURE MANAGER): Patient to f/u with her retail selling specialist Rectum inflammation 08/07/2019 Assessment & Plan (08/07/2019 10:14 AM INFRASTRUCTURE MANAGER): New Refer to general surgery AV block, 2nd degree 07/31/2019 Overview (07/31/2019): Intermittent high-degree pacemaker placed with resolution of symptoms Assessment & Plan (06/28/2020 10:51 AM INFRASTRUCTURE MANAGER): Intermittent with syncope. Pacemaker in 2012. Rare pacing. No indication for APPLICATION DEVELOPMENT DIRECTOR Pacemaker 07/31/2019 Assessment & Plan (06/28/2020 11:00 AM INFRASTRUCTURE MANAGER): Check today shows normal function. Underlying rhythm sinus. 30% a paced 16% V paced infusing. Excellent lead function and battery for 2 years. Site itself looks excellent. Assessment & Plan (07/31/2019 3:25 PM INFRASTRUCTURE MANAGER): Check today shows normal function. Underlying rhythm sinus. 60% a paced 70% V paced excellent lead function. Battery 3 years. Paroxysmal atrial fibrillation 07/31/2019 Assessment & Plan (07/31/2019 3:25 PM INFRASTRUCTURE MANAGER): In short other atrial arrhythmias. Extremely low burden. No indication for treatment Epigastric abdominal pain 07/10/2019 Assessment & Plan (07/10/2021 1:23 PM INFRASTRUCTURE MANAGER): Likely muscular strain from the intractable nausea/vomiting which has resolved May use OTC Tylenol PRN Assessment & Plan (03/30/2020 2:54 PM CDT): Chronic Refer to GI in [facility] for second opinion Assessment & Plan (02/10/2020 3:41 PM CDT): better Assessment & Plan (11/20/2019 1:36 PM CDT): To try juice plusand probiotic and then follow up with GI Assessment & Plan (11/20/2019 1:29 PM CDT): Persistent Order elavil Assessment & Plan (08/07/2019 10:14 AM INFRASTRUCTURE MANAGER): Not improved Low fat diet Refer to general surgery for gallbladder Assessment & Plan (07/23/2019 8:44 AM INFRASTRUCTURE MANAGER): Start prilosec Order labs Order CT abd/pelvis Anxiety with depression 06/17/2018 Assessment & Plan (11/24/2022 4:23 AM CDT): Chronic Cont xanax PRN Assessment & Plan (10/11/2022 12:37 PM CDT): Worsening again Start vraylar Refer to psychiatrist Assessment & Plan (05/26/2022 5:11 AM INFRASTRUCTURE MANAGER): Chronic Cont xanax PRN Breast asymmetry 11/05/2017 Elderly multigravida in second trimester 018 History of loop electrosurgi percy excision procedure (LEEP) of cervix affecting in second trimester 08/31/2017 History of uterine scar from previous surgery Bipolar disease during in second trime ster 08/31/2017 Paroxysmal atrial fibrillation 07/19/2017 Assessment & Plan (06/28/2020 11:00 AM INFRASTRUCTURE MANAGER): Longest episode 30 seconds last 6 months. No indication for additional treatment Missed menses 05/21/2017 Menorrhagia with regular cycle 12/01/2016 Constipation 10/13/2016 Assessment & Plan (03/30/2020 2:54 PM CDT): Chronic Refer to GI in [facility] for second opinion Abdominal pain 06/15/2016 Assessment & Plan (08/16/2023 3:17 PM INFRASTRUCTURE MANAGER): Persistent Refer to general surgery Assessment & Plan (07/16/2023 5:59 AM INFRASTRUCTURE MANAGER): New Order HIDA scAn Allergy status to [...] including calling Suicide Hotline ( ) or 919. Follow up in three months with PCP Resolved Problems Problem Noted Date Diagnosed Date Resolved Date Syncope 03/08/2020 05/27/2021 History of migraine headaches 08/31/2017 05/27/2021 Migraine without status migr ainosus, not intractable 11/07/2015 05/27/2021 Encounters Date Type Department Care Team Description 01/22/2025 Telephone [facility] Family Medicine [address] [place] [address] Archana Rodríguez MD from Last [...] on file Legal Sex Female 5:07 PM INFRASTRUCTURE MANAGER Gender Identity Female 07/30/2019 2:46 PM INFRASTRUCTURE MANAGER Sexual Orientation Straight 07/30/2019 2: 46 PM INFRASTRUCTURE MANAGER Obstetrics History Para Term AB IAB SAB [...] PM CDT Pulse 82 07/02/2024 9:51 AM INFRASTRUCTURE MANAGER Temperature 36.4 C (97.6 F) 07/02/2024 9:51 AM INFRASTRUCTURE MANAGER Respiratory Rate 18 03/26/2024 5:05 PM CDT Oxygen Saturation 97% 07/02/2024 9:51 AM INFRASTRUCTURE MANAGER Inhaled Oxygen Concentration - - Weight 60.8 [...] REFLEX TO GENOTYPING Routine 06/21/2023 10:47 AM INFRASTRUCTURE MANAGER Encounter for well woman exam with routine gynecological exam HEPATITIS C ANTIBODY Routine 05/29/2017 3:52 PM INFRASTRUCTURE MANAGER from Last 3 Months or Most Recently [...] and Genotyping (Cytology Component) (06/21/2023 10:47 AM INFRASTRUCTURE MANAGER) Vaginal (Pap test) 06/21/2023 10:47 AM INFRASTRUCTURE MANAGER 06/25/2023 1:57 PM INFRASTRUCTURE MANAGER Narrative PATHOLOGY [facility] - 06/29/2023 7:47 AM INFRASTRUCTURE MANAGER EPIC results best viewed via link to PDF [facility] Surgical Pathology [place], [place] [id number] Note to Patients: This report may contain [...] Gender: F : 1980 (Age: 43) Address: [address] [place] [address] [facility] #: [id number] Service: UNKNOWN Location: Patient Type: [facility] SPECIMEN Taken: 06/21/2023 Received: 06/25/2023 Accessioned: 06/25/2023 [...] was performed using the mercedes HPV assay ([employer] This test has been modified from the general claims agent's instructions. Its performance characteristics were determined by [facility] in a manner consistent with CLIA requirements. This test has not been cleared or approved by the U.S. Food and Drug Administration. Test Performed by: [place] [address] Wrapper Stemmer Hand: Tonny Anand M.D. Ph.D.; CLIA# [id number] This specimen has been rescreened in accordance with this laboratory's Mechanical Estimator Program. 06/29/2023 07:47 ANDREY Stratton MS(ASCP)PA Report [...] and histologic results be correlated for laboratory manufacturing quality inspector & improvement standards. FOR ALL HIGH-GRADE CASES [...] determined by the Surgical Pathology Department at [facility] as part of an ongoing quality officer program and in compliance with federally mandated [...] determined by the Surgical Pathology Department of [facility]. It has not been cleared or approved by the U. S. Food and Drug Administration. Sandra Armando NP LAB CYTOLOGY ORDERABLES Final Result PATHOLOGY [facility] * Hepatitis C antibody (05/29/2017 3:52 PM INFRASTRUCTURE MANAGER) Hep C Ab NONREACT NONREACTIVE 05/29/2017 8:03 PM INFRASTRUCTURE MANAGER [facility] HISTORICAL RESULTS Comment: Siemens Mode De FaireaurXP using PONCE (chemiluminescent immunoassay) technology. NONREACTIVE: Antibodies [...] to Hepatitis C detected. 05/29/2017 3:52 PM INFRASTRUCTURE MANAGER 05/29/2017 3:56 PM INFRASTRUCTURE MANAGER Mireya Maryanngema [place] DO LAB MICROBIOLOGY - GEN ERAL ORDERABLES Final Result [facility] HISTORICAL RESULTS from Last 3 Months or Most Recently Relevant to Health Maintenance Insurance [facility] CHOICE PLUS Care Teams Freight Inspector Relationship Specialty Start Date End Date Archana Rodríguez MD PCP - General Family Medicine 09/13/18
--- OUTSIDE RECORDS SUMMARY | 2025-03-06 13:56 | XMS_ITS | Encounter Summary ---
Author Organization [facility] Facility Care Team Providers Care Show Operations Supervisor Name Role Phone Archana Rodríguez MD Primary Care Provider [phone] [phone] Encounter Details Date Type Department Care Team (Latest Contact Info) Description 02/04/2013 Orders Only [facility] CLINCONV ProviderLacey MD [address] [place] [address] Social History Tobacco Use Types Packs/Day Years Used Date Smoking Tobacco: Never Assessed Comments Unknown Sex and Gender Information Value Date Recorded Sex Assigned at Not on file Legal Sex Female 5:07 PM TOOL CARRIER Gender Identity Female 07/30/2019 2:46 PM TOOL CARRIER Sexual Orientation Straight 07/30/2019 2: 46 PM TOOL CARRIER documented as of this encounter Plan of [...] COVID: Suspected 06/23/2021 06/23/2021 07/07/2021 3:05 AM TOOL CARRIER COVID: Suspected 03/11/2024 03/11/2024 03/11/2024 5:50 PM CDT documented as of this encounter Care Teams Show Operations Supervisor Relationship Specialty Start Date End Date Archana Rodríguez MD PCP - General Family Medicine 09/13/18 documented as of this encounter
--- OUTSIDE RECORDS SUMMARY | 2025-03-06 13:56 | XMS_ITS | Encounter Summary ---
Author Organization [facility] Address [address] [place] [address] Care Team Providers Care Civil Division Deputy Sheriff Name Role Phone Ruby Negron MD Unavailable Archana Singh MD Primary Care Provider +1- [phone] Encounter Details Date Type Department Care Team (Late st Contact Info) Description 10/22/2023 Revisu Message Enc [facility] [address] [place], [place] [phone] [facility] Provider Carelink Social History Tobacco Use Types [...] 04/12/2025 2:00 PM CDT Allied Health/Nurse Visit [facility], [facility] [address] [place], [place] [phone] Dickson Rubio MD [facility] [address] [place], [place] [id number] 04/13/2025 2:20 PM CDT Allied Health/Nurse Visit [facility], [place] [address] [place] [address] Ruby Negron MD Three [facility]. [facility] [address] [place] [address] 12/21/2025 10:00 AM CDT Office Visit [place] [facility], [place] [address] [place] [address] Ruth Clark APRN 3 [facility], [place] [address] [place] [address] documented as of this encounter Visit Diagnoses Not on filedocumented in this encounter Care Teams Civil Division Deputy Sheriff Relationship Specialty Start Date End Date Archana Singh MD Three [facility]. [facility] [address] [place] [address] PCP - General FAMILY PRACTICE 03/14/21 Ruby Negron MD Three [facility]. [facility] [address] [place] [address] EP Solar Business Developer CLINICAL CARDIAC ELECTROPHYSIOLOGY 12/10/18 documented as of this encounter
--- OUTSIDE RECORDS SUMMARY | 2025-03-06 13:56 | XMS_ITS | Clinical Summary ---
Author Organization [facility] Address [facility] [place] [address] Care Team Providers Care District Or District Office Director Name Role Phone Ruby Negron MD Unavailable Archana Singh MD Primary Care Provider +1- [phone] Allergies Active Allergy Reactions Criticality Noted Date [...] 2012. Rare pacing. No indication for APPLICATION PACKAGER AV block 12/06/2015 Pacemaker 12/06/2015 Overview (02/24/2021): Last Assessment & Plan: Check today shows normal function. Underlying rhythm sinus. 60% a paced 70% V paced excellent lead function. Battery 3 years. Bradycardia 11/07/2015 Bipolar 1 disorder ([facility]) High degree atrioventricular block Syncope Encounters Date Type Department Care Team Description 01/12/2025 Travel 01/11/2025 2:00 PM CDT Allied Health[facility] [address] [address] Ruby Negron MD Remote Device Check 12/08/2024 8:30 AM CDT [facility], [address] [address] Ruby Negron MD Complete Heart Block (Medt [...] 04/12/2025 2:00 PM CDT Allied Health/Nurse Visit [facility], [facility] [address] [place], [place] [address] Dickson Rubio MD Three [facility]. [facility] [address] [place] [address] 04/13/2025 2:20 PM CDT Allied Health/Nurse Visit [facility], [facility] [address] [place], [place] [address] Ruby Negron MD Three [facility]. [facility] [address] [place], [place] [address] 12/21/2025 10:00 AM CDT Office Visit [facility], [facility] [address] [place], [place] [address] Ruth Clark, CLARICE 3 [facility], [facility] [address] [place], [place] [address] Health Maintenance Due Date Last Done Comments [...] this topic Medical Devices Implanted Type Area Systems Analysis Manager Device Identifier Shelf Expiration Date Model / Serial / Lot Ra Lead- 3 Implanted: (Quantity not on file) Lead Implant [employer] CARDIAC RHYTHM AND HEART FAILURE - DIV M [id number] / [id number] / Rv Lead- 3 Implanted: (Quantity not on file) Lead Implant [employer] CARDIAC RHYTHM AND HEART FAILURE - DIV M 4092-52 / [id number] V / Mdt Pacemaker-5/3 06/2023 Implanted:Qty : 1 on 11/16/2023 by Ruby Negron MD Pacemaker [employer] [id number] 03/01/2025 [id number] / [id number] / Explanted Type Area Systems Analysis Manager Device Identifier Shelf Expiration Date Model / Serial / Lot Pacemaker-Medt- 02/04/2013 Implanted:02/04 by Drake Delgadillo MD (Quantity not on file) Explanted:Qty: 1 on 11/16/2023 by Ruby Negron MD Pacemaker [employer] / [id number] / Insurance [place] Care Teams District Or District Office Director Relationship Specialty Start Date End Date Archana Singh MD [facility]. [facility] [address] [place], [place] [address] PCP - General FAMILY PRACTICE 03/14/21 Ruby Negron MD Three [facility]. [facility] [address] [place], [place] [address] EP Alloy Weigher CLINICAL CARDIAC ELECTROPHYSIOLOGY 12/10/18
--- OUTSIDE RECORDS SUMMARY | 2025-03-06 13:56 | XMS_ITS | Encounter Summary ---
Author Organization [facility] Address [address] [place] [address] Care Team Providers Care Apparel Sales Associate Name Role Phone Ruby Negron MD Unavailable Archana Singh MD Primary Care Provider [phone]- [phone] Encounter Details Date Type Department Care Team (Late st Contact Info) Description 09/19/2023 Citizens Rx Message Enc [place] [facility], [facility] [address] [place], [place] [phone] [facility], [facility] Provider Carelink Battery Check Social History Tobacco [...] 04/12/2025 2:00 PM CDT Allied Health/Nurse Visit [place] [facility], [facility] [address] [place], [place] [phone] Dickson Rubio MD [facility]. [facility] [address] [place], [place] [phone] 04/13/2025 2:20 PM CDT Allied Health/Nurse Visit [place] [facility] THREE [facility], [place] [address] [place] [address] Ruby Negron MD Three [facility]. [facility] [address] [place] [address] 12/21/2025 10:00 AM CDT Office Visit [place] [facility], [place] [address] [place], [place] [address] Ruth Clark, CLARICE 3 [facility], [facility] [address] [place] [address] documented as of this encounter Visit Diagnoses Not on filedocumented in this encounter Care Teams Apparel Sales Associate Relationship Specialty Start Date End Date Archana Singh MD Three [facility]. [facility] [address] [place] [address] PCP - General FAMILY PRACTICE 03/14/21 Ruby Negron MD Three [facility]. [facility] [address] [place] [address] EP Sustainable Systems Analyst CLINICAL CARDIAC ELECTROPHYSIOLOGY 12/10/18 documented as of this encounter
--- OUTSIDE RECORDS SUMMARY | 2025-03-06 13:56 | XMS_ITS | Encounter Summary ---
Author Organization [facility] Facility Care Team Providers Care Trade Promotion Analyst Name Role Phone Archana Rodríguez MD Primary Care Provider [phone] [phone] Encounter Details Date Type Department Care Team (Latest Contact Info) Description 06/24/2018 Orders Only [facility] CLINCONV ProviderLacey MD [address] [place] [address] Social History Tobacco Use Types Packs/Day Years Used Date Smoking Tobacco: Never Assessed Comments Unknown Sex and Gender Information Value Date Recorded Sex Assigned at Not on file Legal Sex Female 5:07 PM DIGITAL PHOTO PRINTER Gender Identity Female 07/30/2019 2:46 PM DIGITAL PHOTO PRINTER Sexual Orientation Straight 07/30/2019 2: 46 PM DIGITAL PHOTO PRINTER documented as of this encounter Plan of Treatment Not on file documented as of this encounter Procedures Procedure Name Priority Date/Time Associated Diagnosis Comments CARDIOLOGY REPORT 06/24/2018 12: 00 AM DIGITAL PHOTO PRINTER documented in this encounter Results * CARDIOLOGY REPORT (06/24/2018 12:00 AM DIGITAL PHOTO PRINTER) Anatomical Region Laterality Modality Other Narrative 06/24/2018 12:00 AM DIGITAL PHOTO PRINTER Ordered by an unspecified provider. us Historical Provider [facility] AN LINDO Final Result documented in this encounter Visit Diagnoses Not on filedocumented in this encounter Additional Health Concerns Infection Onset Date Last Indicated Resolved Time COVID: Suspected 06/23/2021 06/23/2021 07/07/2021 3:05 AM DIGITAL PHOTO PRINTER COVID: Suspected 03/11/2024 03/11/2024 03/11/2024 5:50 PM CDT documented as of this encounter Care Teams Trade Promotion Analyst Relationship Specialty Start Date End Date Archana Rodríguez MD PCP - General Family Medicine 09/13/18 documented as of this encounter
--- OUTSIDE RECORDS SUMMARY | 2025-03-06 13:57 | XMS_ITS | Encounter Summary ---
Author Organization [facility] Facility Care Team Providers Care Die Set Up Worker Name Role Phone Archana Rodríguez MD Primary Care Provider [phone] [phone] Encounter Details Date Type Department Care Team (Latest Contact Info) Description 08/21/2016 Orders Only [facility] CLINCONV ProviderLacey MD [address] [place] [address] Social History Tobacco Use Types Packs/Day Years Used Date Smoking Tobacco: Never Assessed Comments Unknown Sex and Gender Information Value Date Recorded Sex Assigned at Not on file Legal Sex Female 5:07 PM LABORATORY GENETICIST Gender Identity Female 07/30/2019 2:46 PM LABORATORY GENETICIST Sexual Orientation Straight 07/30/2019 2: 46 PM LABORATORY GENETICIST documented as of this encounter Plan of [...] COVID: Suspected 06/23/2021 06/23/2021 07/07/2021 3:05 AM LABORATORY GENETICIST COVID: Suspected 03/11/2024 03/11/2024 03/11/2024 5:50 PM CDT documented as of this encounter Care Teams Die Set Up Worker Relationship Specialty Start Date End Date Archana Rodríguez MD PCP - General Family Medicine 09/13/18 documented as of this encounter
--- OUTSIDE RECORDS SUMMARY | 2025-03-06 13:57 | XMS_ITS | Encounter Summary ---
Author Organization [facility] Facility Care Team Providers Care Adding Machine Operator Name Role Phone Archana Rodríguez MD Primary Care Provider +1 -[phone] Encounter Details Date Type Department Care Team (Latest Contact Info) Description 07/05/2017 Orders Only [facility] CLINCONV ProviderLacey MD [address] [place] [address] Social History Tobacco Use Types Packs/Day Years Used Date Smoking Tobacco: Never Assessed Comments Unknown Sex and Gender Information Value Date Recorded Sex Assigned at Not on file Legal Sex Female 5:07 PM BASEBALL COACH Gender Identity Female 07/30/2019 2:46 PM BASEBALL COACH Sexual Orientation Straight 07/30/2019 2: 46 PM BASEBALL COACH documented as of this encounter Plan of Treatment Not on file documented as of this encounter Procedures Procedure Name Priority Date/Time Associated Diagnosis Comments CARDIOLOGY REPORT 07/05/2017 12: 00 AM BASEBALL COACH documented in this encounter Results * CARDIOLOGY REPORT (07/05/2017 12:00 AM BASEBALL COACH) Anatomical Region Laterality Modality Other Narrative 07/05/2017 12:00 AM BASEBALL COACH Ordered by an unspecified provider. us Historical Provider CV CARDIAC SERVICES AN LINDO Final Result documented in this encounter Visit Diagnoses Not on filedocumented in this encounter Additional Health Concerns Infection Onset Date Last Indicated Resolved Time COVID: Suspected 06/23/2021 06/23/2021 07/07/2021 3:05 AM BASEBALL COACH COVID: Suspected 03/11/2024 03/11/2024 03/11/2024 5:50 PM CDT documented as of this encounter Care Teams Adding Machine Operator Relationship Specialty Start Date End Date Archana Rodríguez MD PCP - General Family Medicine 09/13/18 documented as of this encounter
--- OUTSIDE RECORDS SUMMARY | 2025-03-06 13:57 | XMS_ITS | Encounter Summary ---
Author Organization [facility] Facility Care Team Providers Care Metal Tile Setter Name Role Phone Archana Rodríguez MD Primary Care Provider +1 -[phone] Encounter Details Date Type Department Care Team (Latest Contact Info) Description 01/18/2016 Orders Only [facility] CLINCONV ProviderLacey MD [address] [place] [address] Social History Tobacco Use Types Packs/Day Years Used Date Smoking Tobacco: Never Assessed Comments Unknown Sex and Gender Information Value Date Recorded Sex Assigned at Not on file Legal Sex Female 5:07 PM HANDLE AND VENT MACHINE OPERATOR Gender Identity Female 07/30/2019 2:46 PM HANDLE AND VENT MACHINE OPERATOR Sexual Orientation Straight 07/30/2019 2: 46 PM HANDLE AND VENT MACHINE OPERATOR documented as of this encounter Plan of [...] COVID: Suspected 06/23/2021 06/23/2021 07/07/2021 3:05 AM HANDLE AND VENT MACHINE OPERATOR COVID: Suspected 03/11/2024 03/11/2024 03/11/2024 5:50 PM CDT documented as of this encounter Care Teams Metal Tile Setter Relationship Specialty Start Date End Date Archana Rodríguez MD PCP - General Family Medicine 09/13/18 documented as of this encounter
--- OUTSIDE RECORDS SUMMARY | 2025-03-06 13:57 | XMS_ITS | Encounter Summary ---
Author Organization [facility] Facility Care Team Providers Care Mental Measurements Teacher Name Role Phone Archana Rodríguez MD Primary Care Provider +1 -[phone] Encounter Details Date Type Department Care Team (Latest Contact Info) Description 01/01/2017 Orders Only [facility] CLINCONV ProviderLacey MD [address] [place] [address] Social History Tobacco Use Types Packs/Day Years Used Date Smoking Tobacco: Never Assessed Comments Unknown Sex and Gender Information Value Date Recorded Sex Assigned at Not on file Legal Sex Female 5:07 PM MOTORMAN/WOMAN Gender Identity Female 07/30/2019 2:46 PM MOTORMAN/WOMAN Sexual Orientation Straight 07/30/2019 2: 46 PM MOTORMAN/WOMAN documented as of this encounter Plan of [...] COVID: Suspected 06/23/2021 06/23/2021 07/07/2021 3:05 AM MOTORMAN/WOMAN COVID: Suspected 03/11/2024 03/11/2024 03/11/2024 5:50 PM CDT documented as of this encounter Care Teams Mental Measurements Teacher Relationship Specialty Start Date End Date Archana Rodríguez MD PCP - General Family Medicine 09/13/18 documented as of this encounter
--- OUTSIDE RECORDS SUMMARY | 2025-03-06 13:57 | XMS_ITS | Encounter Summary ---
Author Organization [facility] Facility Care Team Providers Care Loft Worker Name Role Phone Acrhana Rodríguez MD Primary Care Provider +1 -[phone] Encounter Details Date Type Department Care Team (Latest Contact Info) Description 12/06/2017 Orders Only [facility] CLINCONV ProviderLacey MD [address] [place] [address] Social History Tobacco Use Types Packs/Day Years Used Date Smoking Tobacco: Never Assessed Comments Unknown Sex and Gender Information Value Date Recorded Sex Assigned at Not on file Legal Sex Female 5:07 PM COORDINATOR OF LIBRARY SERVICES Gender Identity Female 07/30/2019 2:46 PM COORDINATOR OF LIBRARY SERVICES Sexual Orientation Straight 07/30/2019 2: 46 PM COORDINATOR OF LIBRARY SERVICES documented as of this encounter Plan of [...] COVID: Suspected 06/23/2021 06/23/2021 07/07/2021 3:05 AM COORDINATOR OF LIBRARY SERVICES COVID: Suspected 03/11/2024 03/11/2024 03/11/2024 5:50 PM CDT documented as of this encounter Care Teams Loft Worker Relationship Specialty Start Date End Date Archana Rodríguez MD PCP - General Family Medicine 09/13/18 documented as of this encounter
--- OUTSIDE RECORDS SUMMARY | 2025-03-06 13:57 | XMS_ITS | Encounter Summary ---
Author Organization [facility] Address [address] [place] [address] Care Team Providers Care Investigator Operator Name Role Phone Eden Lal MD Primary Care Provider +1 [phone] Ruby Negron MD Unavailable Archana Singh MD Primary Care Provider +1- [phone] Encounter Details Date Type Department Care Team (Late Contact Info) Description 12/31/2018 Abstract [facility] [address] [place] [address] Shan Smith MA Social History [...] CDT Allied Health/Nurse Visit [facility], [address] [place], [place] [id number] Dickson Rubio MD [facility]. [address] [place], [place] [address] 04/13/2025 2:20 PM CDT Allied Health/Nurse Visit [facility] THREE [facility], [address] [place] [address] Ruby Negron MD Three [facility]. [address] [place], [place] [address] 12/21/2025 10:00 AM CDT Office Visit [facility] THREE [facility], [address] [place], [place] [id number] Ruth Clark APRN 3 [facility], [address] [place], [place] [address] documented as of this encounter Procedures Procedure [...] on filedocumented in this encounter Care Teams Investigator Operator Relationship Specialty Start Date End Date Eden Lal MD PCP - General FAMILY PRACTICE 09/30/18 03/13/21 [facility] [address] [place], [place] [id number] PCP - General FAMILY PRACTICE 03/14/21 Ruby Negron MD [facility] [address] [place], [place] [id number] EP Road Roller Operator Hot Mix CLINICAL CARDIAC ELECTROPHYSIOLOGY 12/10/18 documented as of this encounter
--- OUTSIDE RECORDS SUMMARY | 2025-03-06 13:57 | XMS_ITS | Encounter Summary ---
Author Organization [facility] Address [address] [place] [address] Care Team Providers Care Diesel Retrofit Designer Name Role Phone Ruby Negron MD Unavailable Archana Singh MD Primary Care Provider +1- [phone] Encounter Details Date Type Department Care Team (Late st Contact Info) Description 04/09/2023 [employer] Business Office [address] [place] [address] Lilian, [facility] Provider Action needed Social History Tobacco Use [...] 04/12/2025 2:00 PM CDT Allied Health/Nurse Visit [facility] THREE [facility], [address] [place], [place] [id number] Dickson Rubio MD Three [facility]. [address] [place] [address] 04/13/2025 2:20 PM CDT Allied Health/Nurse Visit [facility] THREE [facility], [address] [place] [address] Ruby Negron MD Three [facility]. [address] [place] [address] 12/21/2025 10:00 AM CDT Office Visit [facility] THREE [facility], [address] [place] [address] Ruth Clark, CLARICE 3 [facility], [facility] [address] [place] [address] documented as of this encounter Visit Diagnoses Not on filedocumented in this encounter Care Teams Diesel Retrofit Designer Relationship Specialty Start Date End Date Archana Singh MD Three [facility]. [address] [place] [address] PCP - General FAMILY PRACTICE 03/14/21 Ruby Negron MD [facility]. [address] [place] [address] EP Showroom Sales Assistant CLINICAL CARDIAC ELECTROPHYSIOLOGY 12/10/18 documented as of this encounter
--- OUTSIDE RECORDS SUMMARY | 2025-03-06 13:57 | XMS_ITS | Encounter Summary ---
Author Organization [facility] Facility Care Team Providers Care Urban Design Consultant Name Role Phone Archana Rodríguez MD Primary Care Provider +1 -[phone] Encounter Details Date Type Department Care Team (Latest Contact Info) Description 07/16/2017 Orders Only [facility] CLINCONV ProviderLacey MD [address] [place] [address] Social History Tobacco Use Types Packs/Day Years Used Date Smoking Tobacco: Never Assessed Comments Unknown Sex and Gender Information Value Date Recorded Sex Assigned at Not on file Legal Sex Female 5:07 PM JACQUARD LOOM HEDDLES TIER Gender Identity Female 07/30/2019 2:46 PM JACQUARD LOOM HEDDLES TIER Sexual Orientation Straight 07/30/2019 2: 46 PM JACQUARD LOOM HEDDLES TIER documented as of this encounter Plan of Treatment Not on file documented as of this encounter Procedures Procedure Name Priority Date/Time Associated Diagnosis Comments SCAN - LABS 07/16/2017 12:00 AM JACQUARD LOOM HEDDLES TIER documented in this encounter Results * SCAN - LABS (07/16/2017 12:00 AM JACQUARD LOOM HEDDLES TIER) Narrative 07/16/2017 12:00 AM JACQUARD LOOM HEDDLES TIER Ordered by an unspecified provider. us Historical Provider Final Res ult documented in this encounter Visit Diagnoses Not on filedocumented in this encounter Additional Health Concerns Infection Onset Date Last Indicated Resolved Time COVID: Suspected 06/23/2021 06/23/2021 07/07/2021 3:05 AM JACQUARD LOOM HEDDLES TIER COVID: Suspected 03/11/2024 03/11/2024 03/11/2024 5:50 PM CDT documented as of this encounter Care Teams Urban Design Consultant Relationship Specialty Start Date End Date Archana Rodríguez MD PCP - General Family Medicine 09/13/18 documented as of this encounter
--- OUTSIDE RECORDS SUMMARY | 2025-03-06 13:57 | XMS_ITS | Encounter Summary ---
Author Organization [facility] Facility Care Team Providers Care Jewel Cupping Machine Operator Name Role Phone Archana Rodríguez MD Primary Care Provider +1 -[phone] Encounter Details Date Type Department Care Team (Latest Contact Info) Description 10/13/2016 Orders Only [facility] CLINCONV ProviderLacey MD [address] [place] [address] Social History Tobacco Use Types Packs/Day Years Used Date Smoking Tobacco: Never Assessed Comments Unknown Sex and Gender Information Value Date Recorded Sex Assigned at Not on file Legal Sex Female 5:07 PM SALES REPRESENTATIVE CONSULTANT Gender Identity Female 07/30/2019 2:46 PM SALES REPRESENTATIVE CONSULTANT Sexual Orientation Straight 07/30/2019 2: 46 PM SALES REPRESENTATIVE CONSULTANT documented as of this encounter Plan [...] COVID: Suspected 06/23/2021 06/23/2021 07/07/2021 3:05 AM SALES REPRESENTATIVE CONSULTANT COVID: Suspected 03/11/2024 03/11/2024 03/11/2024 5:50 PM CDT documented as of this encounter Care Teams Jewel Cupping Machine Operator Relationship Specialty Start Date End Date Archana Rodríguez MD PCP - General Family Medicine 09/13/18 documented as of this encounter
--- OUTSIDE RECORDS SUMMARY | 2025-03-06 13:57 | XMS_ITS | Encounter Summary ---
Author Organization [facility] Facility Care Team Providers Care Straightening Press Operator Name Role Phone Archana Rodríguez MD Primary Care Provider +1 -[phone] Encounter Details Date Type Department Care Team (Latest Contact Info) Description 07/26/2017 Orders Only [facility] CLINCONV ProviderLacey MD [address] [place] [address] Social History Tobacco Use Types Packs/Day Years Used Date Smoking Tobacco: Never Assessed Comments Unknown Sex and Gender Information Value Date Recorded Sex Assigned at Not on file Legal Sex Female 5:07 PM FRAME POLISHER Gender Identity Female 07/30/2019 2:46 PM FRAME POLISHER Sexual Orientation Straight 07/30/2019 2: 46 PM FRAME POLISHER documented as of this encounter Plan of [...] COVID: Suspected 06/23/2021 06/23/2021 07/07/2021 3:05 AM FRAME POLISHER COVID: Suspected 03/11/2024 03/11/2024 03/11/2024 5:50 PM CDT documented as of this encounter Care Teams Straightening Press Operator Relationship Specialty Start Date End Date Archana Rodríguez MD PCP - General Family Medicine 09/13/18 documented as of this encounter
--- OUTSIDE RECORDS SUMMARY | 2025-03-06 13:57 | XMS_ITS | Encounter Summary ---
Author Organization [facility] Facility Care Team Providers Care Supervising Law Enforcement Analyst Name Role Phone Archana Rodríguez MD Primary Care Provider +1 -[phone] Encounter Details Date Type Department Care Team (Latest Contact Info) Description 04/13/2016 Orders Only [facility] CLINCON[facility] ProviderLacey MD [address] [place] [address] Social History Tobacco Use Types Packs/Day Years Used Date Smoking Tobacco: Never Assessed Comments Unknown Sex and Gender Information Value Date Recorded Sex Assigned at Not on file Legal Sex Female 5:07 PM LATIN DANCER Gender Identity Female 07/30/2019 2:46 PM LATIN DANCER Sexual Orientation Straight 07/30/2019 2: 46 PM LATIN DANCER documented as of this encounter Plan of [...] COVID: Suspected 06/23/2021 06/23/2021 07/07/2021 3:05 AM LATIN DANCER COVID: Suspected 03/11/2024 03/11/2024 03/11/2024 5:50 PM CDT documented as of this encounter Care Teams Supervising Law Enforcement Analyst Relationship Specialty Start Date End Date Archana Rodríguez MD PCP - General Family Medicine 09/13/18 documented as of this encounter
--- OUTSIDE RECORDS SUMMARY | 2025-03-06 13:57 | XMS_ITS | Encounter Summary ---
Author Organization [facility] Facility Care Team Providers Care Line Servicer Name Role Phone Archana Rodríguez MD Primary Care Provider +1 -[phone] Encounter Details Date Type Department Care Team (Latest Contact Info) Description 06/21/2015 Orders Only [facility] CLINCONV ProviderLacey MD [address] [place] [address] Social History Tobacco Use Types Packs/Day Years Used Date Smoking Tobacco: Never Assessed Comments Unknown Sex and Gender Information Value Date Recorded Sex Assigned at Not on file Legal Sex Female 5:07 PM DIETARY AIDE TEACHER Gender Identity Female 07/30/2019 2:46 PM DIETARY AIDE TEACHER Sexual Orientation Straight 07/30/2019 2: 46 PM DIETARY AIDE TEACHER documented as of this encounter Plan of Treatment Not on file documented as of this encounter Procedures Procedure Name Priority Date/Time Associated Diagnosis Comments SCAN - PATHOLOGY 07/07/2015 12:0 0 AM DIETARY AIDE TEACHER documented in this encounter Results * SCAN - PATHOLOGY (07/07/2015 12:00 AM DIETARY AIDE TEACHER) Narrative 07/07/2015 12:00 AM DIETARY AIDE TEACHER Ordered by an unspecified provider. us Historical Provider Final Res ult documented in this encounter Visit Diagnoses Not on filedocumented in this encounter Additional Health Concerns Infection Onset Date Last Indicated Resolved Time COVID: Suspected 06/23/2021 06/23/2021 07/07/2021 3:05 AM DIETARY AIDE TEACHER COVID: Suspected 03/11/2024 03/11/2024 03/11/2024 5:50 PM CDT documented as of this encounter Care Teams Line Servicer Relationship Specialty Start Date End Date Archana Rodríguez MD PCP - General Family Medicine 09/13/18 documented as of this encounter
--- OUTSIDE RECORDS SUMMARY | 2025-03-06 13:57 | XMS_ITS | Encounter Summary ---
Author Organization [facility] Address [address] [place] [address] Care Team Providers Care Vb Net Programmer Name Role Phone Ruby Negron MD Unavailable Archana Singh MD Primary Care Provider +1- [phone] Encounter Details Date Type Department Care Team (Late st Contact Info) Description 07/31/2023 Wedge Buster Message Enc [place] [facility], [facility] [address] [place], [place] [phone] [facility], [facility] Provider Carelink Transmission received Social [...] 04/12/2025 2:00 PM CDT Allied Health/Nurse Visit [place] [facility] THREE [facility], [facility] [address] [place], [place] [phone] Dickson Rubio MD [facility]. [facility] [address] [place], [place] [phone] 04/13/2025 2:20 PM CDT Allied Health/Nurse Visit [place] [facility] THREE [facility] [place], [facility] [address] [place] [address] Ruby Negron MD Three [facility]. [facility] [address] [place] [address] 12/21/2025 10:00 AM CDT Office Visit [facility] THREE [facility], [place] [address] [place], [place] [address] Ruth Clark, CLARICE 3 [facility], [facility] [address] [place] [address] documented as of this encounter Visit Diagnoses Not on filedocumented in this encounter Care Teams Vb Net Programmer Relationship Specialty Start Date End Date Archana Singh MD Three [facility]. [facility] [address] [place] [address] PCP - General FAMILY PRACTICE 03/14/21 Ruby Negron MD Three [facility]. [facility] [address] [place], [place] [address] EP Director Of Exhibits CLINICAL CARDIAC ELECTROPHYSIOLOGY 12/10/18 documented as of this encounter
--- OUTSIDE RECORDS SUMMARY | 2025-03-06 13:57 | XMS_ITS | Encounter Summary ---
Author Organization [facility] Facility Care Team Providers Care Urologist Md Name Role Phone Archana Rodríguez MD Primary Care Provider +1 -[phone] Encounter Details Date Type Department Care Team (Latest Contact Info) Description 12/06/2015 Orders Only [facility]IN[facility] ProviderLacey MD [address] [place] [address] Social History Tobacco Use Types Packs/Day Years Used Date Smoking Tobacco: Never Assessed Comments Unknown Sex and Gender Information Value Date Recorded Sex Assigned at Not on file Legal Sex Female 5:07 PM FORESTRY CONSERVATION WORKER Gender Identity Female 07/30/2019 2:46 PM FORESTRY CONSERVATION WORKER Sexual Orientation Straight 07/30/2019 2: 46 PM FORESTRY CONSERVATION WORKER documented as of this encounter Plan of [...] COVID: Suspected 06/23/2021 06/23/2021 07/07/2021 3:05 AM FORESTRY CONSERVATION WORKER COVID: Suspected 03/11/2024 03/11/2024 03/11/2024 5:50 PM CDT documented as of this encounter Care Teams Urologist Md Relationship Specialty Start Date End Date Archana Rodríguez MD PCP - General Family Medicine 09/13/18 documented as of this encounter
--- OUTSIDE RECORDS SUMMARY | 2025-03-06 13:57 | XMS_ITS | Encounter Summary ---
Author Organization [facility] Facility Care Team Providers Care Bsa/Aml Compliance Officer Name Role Phone Archana Rodríguez MD Primary Care Provider +1 -[phone] Encounter Details Date Type Department Care Team (Latest Contact Info) Description 06/05/2016 Orders Only [facility] CLINCONV ProviderLacey MD [address] [place] [address] Social History Tobacco Use Types Packs/Day Years Used Date Smoking Tobacco: Never Assessed Comments Unknown Sex and Gender Information Value Date Recorded Sex Assigned at Not on file Legal Sex Female 5:07 PM TRIMMING ASSEMBLER Gender Identity Female 07/30/2019 2:46 PM TRIMMING ASSEMBLER Sexual Orientation Straight 07/30/2019 2: 46 PM TRIMMING ASSEMBLER documented as of this encounter Plan of Treatment Not on file documented as of this encounter Procedures Procedure Name Priority Date/Time Associated Diagnosis Comments CARDIOLOGY REPORT 06/07/2016 12: 00 AM TRIMMING ASSEMBLER documented in this encounter Results * CARDIOLOGY REPORT (06/07/2016 12:00 AM TRIMMING ASSEMBLER) Anatomical Region Laterality Modality Other Narrative 06/07/2016 12:00 AM TRIMMING ASSEMBLER Ordered by an unspecified provider. us Historical Provider CV CARDIAC SERVICES AN LINDO Final Result documented in this encounter Visit Diagnoses Not on filedocumented in this encounter Additional Health Concerns Infection Onset Date Last Indicated Resolved Time COVID: Suspected 06/23/2021 06/23/2021 07/07/2021 3:05 AM TRIMMING ASSEMBLER COVID: Suspected 03/11/2024 03/11/2024 03/11/2024 5:50 PM CDT documented as of this encounter Care Teams Bsa/Aml Compliance Officer Relationship Specialty Start Date End Date Archana Rodríguez MD PCP - General Family Medicine 09/13/18 documented as of this encounter
--- OUTSIDE RECORDS SUMMARY | 2025-03-06 13:57 | XMS_ITS | Encounter Summary ---
Author Organization [facility] Address [address] [place] [address] Phone Care Team Providers Care Containers Sales Representative Name Role Phone Archana Rodríguez MD Primary Care Provider +1 -[phone] Encounter Details Date Type Department Care Team (Late st Contact Info) Description 07/12/2017 Orders Only [facility] ProviderLacey MD [place] [address] Social History Tobacco Use Types Packs/Day Years Used Date Smoking Tobacco: Never Assessed Comments Unknown Sex and Gender Information Value Date Recorded Sex Assigned at Not on file Legal Sex Female 5:07 PM SALES PRODUCT SPECIALIST Gender Identity Female 07/30/2019 2:46 PM SALES PRODUCT SPECIALIST Sexual Orientation Straight 07/30/2019 2: 46 PM SALES PRODUCT SPECIALIST documented as of this encounter Plan of Treatment Not on file documented as of this encounter Procedures Procedure Name Priority Date/Time Associated Diagnosis Comments CYTOLOGY 07/12/2017 12:00 AM SALES PRODUCT SPECIALIST documented in this encounter Results * CYTOLOGY (07/12/2017 12:00 AM SALES PRODUCT SPECIALIST) Narrative 07/12/2017 12:00 AM SALES PRODUCT SPECIALIST Ordered by an unspecified provider. Historical Provider LAB CYTOLOGY ORDERABLES F inal Result documented in this encounter Visit Diagnoses Not on filedocumented in this encounter Additional Health Concerns Infection Onset Date Last Indicated Resolved Time COVID: Suspected 06/23/2021 06/23/2021 07/07/2021 3:05 AM SALES PRODUCT SPECIALIST COVID: Suspected 03/11/2024 03/11/2024 03/11/2024 5:50 PM CDT documented as of this encounter Care Teams Containers Sales Representative Relationship Specialty Start Date End Date Archana Rodríguez MD PCP - General Family Medicine 09/13/18 documented as of this encounter
[2025-03-06] MEDS: SODIUM CHLORIDE 0.9% IV 1,000 ML 999 ML IV CONT (13:58)
[2025-03-06] MEDS: ONDANSETRON INJ 4 MG/2 ML VIAL IV PUSH (13:58)
[2025-03-06] MEDS: HYDROmorphone HCL INJ (*CRX) 1 MG/ML SYR 0.5 MG IV PUSH (13:59)
[2025-03-06 14:21] LABS: Pregnancy On Board Control Positive
[2025-03-06] MEDS: BELLADONNA ALK/PHENOB ELIX 10 ML, MAG HYDROX/ALUMINUM HYD/SIMETH 30 ML, LIDOCAINE 2% VI... PO (16:28)
[2025-03-06 16:38] VITALS: BP 136/80; PULSE 86; RESP 16; O2SAT 98
[2025-03-06 16:45] LABS: BEDSIDEPREGUCG Negative (Negative)
== END 2025-03-06 16:39 | disposition home or self-care (01) ==
PROVIDERS: Emergency Medicine; Emergency Provider Emergency Medicine
DX: K29.70 Gastritis, unspecified, without bleeding (principal)
CPT/HCPCS: 36415; 74177; 80053; 81001; 81025; 83690; 85025; 93005; 96361; 96374; 96375; 99284; A9270; J1171; J2405; J7030; Q9967